=== PATIENT | male | born 1950 | race American Indian/Alaskan Native ===

== ENCOUNTER 2016-11-18 07:41 | Inpatient (IN) | payer BC ==
[2016-11-18] MEDS ORDERED: WATER FOR INJ (PF) 10 ML ONE (08:43)
[2016-11-18] MEDS ORDERED: GEODON IM ONE ×2 (08:43→08:45)
[2016-11-18] MEDS ORDERED: PROTONIX IV ONE (08:44)
--- NOTE | 2016-11-18 08:46 | Emergency Department Report ---
ED General Adult HPI - General Chief complaint: Weakness Stated complaint: LETHARGIC Time Seen by Provider: 11/18/16 08:08 Source: patient, family, EMS (ems notes not available at time of chart dictation), RN notes reviewed, old records reviewed Mode of arrival: Stretcher Limitations: Physical Limitation - History of Present Illness Initial comments: This is a 66-year-old male, previously unknown to me. History is obtained by the patient, speaking to his , and review of old medical records. Patient has a history of pulmonary embolus, no longer on anticoagulation, anemia , chronic kidney disease, CHF, possible stroke. He is brought to the hospital by his and ambulance for weakness. Weakness has been present for one week. He describes heartburn. He denies chest pain. He denies headache and neck pain. Denies nausea and vomiting. Denies hematemesis denies bright red blood per rectum, denies irritative and obstructive urinary symptoms. Symptoms are constant. Cannot describe exacerbating or relieving factors. -: Gradual Consistency: constant Improves with: none Worsens with: none Associated Symptoms: confusion, malaise, weakness - Related Data Home Medications Medication Instructions Recorded Confirmed Last Taken Aspirin EC [Aspirin Enteric Coated 81 mg PO QDAY 11/18/16 11/18/16 Unknown TAB] Furosemide [Lasix TAB] 40 mg PO QDAY 11/18/16 11/18/16 Unknown Lisinopril [Zestril TAB] 40 mg PO QDAY 11/18/16 11/18/16 Unknown Metolazone [Zaroxolyn] 5 mg PO QDAY 11/18/16 11/18/16 Unknown Pravastatin Sodium [Pravastatin] 40 mg PO QHS 11/18/16 11/18/16 Unknown cloNIDine [Catapres] 0.2 mg PO TID 11/18/16 11/18/16 Unknown Allergies Allergy/AdvReac Type Severity Reaction Status Date / Time No Known Allergies Allergy Verified 05/25/15 10:29 ED Review of Systems ROS: Stated complaint: LETHARGIC Other details as noted in HPI Constitutional: malaise, weakness Eyes: denies: vision change ENT: denies: epistaxis Respiratory: see HPI Cardiovascular: as per HPI Gastrointestinal: abdominal pain Genitourinary: as per HPI Musculoskeletal: as per HPI Neurological: weakness Psychiatric: as per HPI ED Past Medical Hx - Past Medical History Previous Medical History?: Yes Hx Hypertension: Yes Hx Heart Attack/AMI: (RV overload with PFO and dilated RA & RV, bradycardic) Hx Congestive Heart Failure: Yes Hx Diabetes: Yes Hx Liver Disease: No Hx Renal Disease: Yes (Stage 4 with need for dialysis recently) Hx Asthma: No Hx COPD: No Hx HIV: No Additional medical history: renal insufficiency - Surgical History Past Surgical History?: Yes - Social History Smoking Status: Never Smoker Substance Use Type: None - Medications Home Medications: Home Medications Medication Instructions Recorded Confirmed Last Taken Type Aspirin EC [Aspirin Enteric Coated 81 mg PO QDAY 11/18/16 11/18/16 Unknown History TAB] Furosemide [Lasix TAB] 40 mg PO QDAY 11/18/16 11/18/16 Unknown History Lisinopril [Zestril TAB] 40 mg PO QDAY 11/18/16 11/18/16 Unknown History Metolazone [Zaroxolyn] 5 mg PO QDAY 11/18/16 11/18/16 Unknown History Pravastatin Sodium [Pravastatin] 40 mg PO QHS 11/18/16 11/18/16 Unknown History cloNIDine [Catapres] 0.2 mg PO TID 11/18/16 11/18/16 Unknown History ED Physical Exam - General Limitations: Altered Mental Status, Physical Limitation General appearance: in no apparent distress, lethargic - Head Head exam: Present: atraumatic, normocephalic - Eye Eye exam: Present: normal appearance, EOMI. Absent: nystagmus - ENT ENT exam: Present: normal exam, normal orophraynx, mucous membranes moist - Neck Neck exam: Present: normal inspection, full ROM. Absent: tenderness, meningismus - Respiratory Respiratory exam: Present: normal lung sounds bilaterally. Absent: respiratory distress, wheezes, rales, rhonchi, stridor, chest wall tenderness - Cardiovascular Cardiovascular Exam: Present: regular rate, normal rhythm, normal heart sounds. Absent: bradycardia, tachycardia, irregular rhythm, systolic murmur, diastolic murmur, rubs, gallop - GI/Abdominal GI/Abdominal exam: Present: soft, normal bowel sounds. Absent: distended, tenderness, guarding, rebound, rigid, pulsatile mass - Rectal Rectal exam: Present: normal inspection, normal rectal tone, heme (+) stool, black stool - Extremities Exam Extremities exam: Present: normal inspection, full ROM, normal capillary refill. Absent: tenderness, pedal edema, joint swelling, calf tenderness - Back Exam Back exam: Present: normal inspection, full ROM. Absent: tenderness, CVA tenderness (R), CVA tenderness (L), muscle spasm, paraspinal tenderness, vertebral tenderness - Neurological Exam Neurological exam: Present: altered (alert to name, year, location.), other ( Extraocular movements intact. Tongue midline. No facial droop. Facial sensation intact to light touch in the V1, V2, V3 distribution bilaterally. 5 and 5 strength in 4 extremities.. Sensation is intact to light touch in 4 extremities.). Absent: motor sensory deficit - Psychiatric Psychiatric exam: Present: normal affect, normal mood - Skin Skin exam: Present: warm, dry, intact, normal color. Absent: rash ED Course Vital Signs 11/18/16 11/18/16 11/18/16 07:54 07:55 07:56 Temperature Pulse Rate Pulse Rate [ Anterior Bilateral Throughout] Respiratory Rate Respiratory Rate [Anterior Bilateral Throughout] Blood Pressure O2 Sat by Pulse 100 99 100 Oximetry 11/18/16 11/18/16 11/18/16 07:58 08:00 08:01 Temperature Pulse Rate 97 H Pulse Rate [ Anterior Bilateral Throughout] Respiratory 13 Rate Respiratory Rate [Anterior Bilateral Throughout] Blood Pressure 148/78 O2 Sat by Pulse 100 100 100 Oximetry 11/18/16 11/18/16 11/18/16 08:02 08:04 08:06 Temperature Pulse Rate 97 H 99 H 93 H Pulse Rate [ Anterior Bilateral Throughout] Respiratory 11 L 12 13 Rate Respiratory Rate [Anterior Bilateral Throughout] Blood Pressure 148/78 148/78 148/78 O2 Sat by Pulse 100 100 100 Oximetry 11/18/16 11/18/16 11/18/16 08:30 08:54 09:00 Temperature Pulse Rate 102 H 95 H 93 H Pulse Rate [ Anterior Bilateral Throughout] Respiratory 14 17 21 Rate Respiratory Rate [Anterior Bilateral Throughout] Blood Pressure 147/69 147/69 O2 Sat by Pulse 100 100 100 Oximetry 11/18/16 11/18/16 11/18/16 09:51 10:00 10:25 Temperature 98.1 F Pulse Rate 95 H 91 H Pulse Rate [ Anterior Bilateral Throughout] Respiratory 22 12 Rate Respiratory Rate [Anterior Bilateral Throughout] Blood Pressure 147/69 130/65 118/65 O2 Sat by Pulse 100 100 100 Oximetry 11/18/16 11/18/16 11/18/16 10:30 10:40 11:00 Temperature 98 F Pulse Rate 91 H 91 H 111 H Pulse Rate [ Anterior Bilateral Throughout] Respiratory 15 17 13 Rate Respiratory Rate [Anterior Bilateral Throughout] Blood Pressure 119/63 119/63 116/71 O2 Sat by Pulse 100 100 100 Oximetry 11/18/16 11/18/16 11/18/16 11:01 11:10 11:16 Temperature 98.2 F Pulse Rate 108 H 113 H Pulse Rate [ 112 H Anterior Bilateral Throughout] Respiratory 13 15 Rate Respiratory 19 Rate [Anterior Bilateral Throughout] Blood Pressure 111/75 111/75 O2 Sat by Pulse 100 100 Oximetry - Reevaluation(s) Reevaluation #1: 11/18/16 10:05 Differential diagnosis: Pneumonia, urinary tract infection, subacute stroke, anemia, renal insufficiency , electrolyte imbalance, acute coronary syndrome, gastrointestinal bleed Assessment and plan: 66-year-old male with generalized weakness, altered mental status. He moves 4 extremities, has a nonfocal neurologic exam, but is somewhat lethargic. Hemodynamically stable, afebrile rectally, black stool on rectal examination, strongly guaiac positive. not TPA candidate given upper GI bleed clinically, and symptoms present for greater than 4.5 hours. Urinalysis pending. Patient does not appear to be volume overloaded clinically. Laboratory studies indicate profound anemia, with hemoglobin/hematocrit of 3. 9/ 12. He was started empirically on Protonix, 2 large-bore IVs ordered, and emergent call was made to the blood bank for 3 units of packed red blood cells. Page is placed to gastroenterology, I am when he fell them to call back. I'm currently waiting for his chemistry studies to result. I have requested to the chemistry lab to expedite the results of his chemistry numerous times. Case is discussed with critical care, Dr. Billy, who authorizes triaged to the ICU. Case is discussed with Hospital physician, Tay Caldwell who graciously accepts the patient to his service. Reevaluation #2: 11/18/16 10:07 Lactic acidosis appreciated, most likely combination of hypoperfusion secondary to severe anemia, as well as superimposed/known chronic renal insufficiency. Reevaluation #3: 11/18/16 10:12 Elevated troponin appreciated, most likely combination of known renal insufficiency, and severe profound symptomatic anemia. I will withhold aspirin therapy at this time. I will defer to the inpatient team to contact cardiology. He is also hyperkalemic, with some worsening renal insufficiency. He also has hyperglycemia. I will administer rectal Kayexalate, and give him insulin. Reevaluation #4: 11/18/16 10:22 CASE is discussed with Dr. Sandoval of gastroenterology. ED Medical Decision Making - Lab Data Result diagrams: 11/18/16 08:48 11/18/16 08:48 Vital Signs 11/18/16 11/18/16 11/18/16 07:54 07:55 07:56 Pulse Rate Respiratory Rate Blood Pressure O2 Sat by Pulse 100 99 100 Oximetry 11/18/16 11/18/16 11/18/16 07:58 08:00 08:01 Pulse Rate 97 H Respiratory 13 Rate Blood Pressure 148/78 O2 Sat by Pulse 100 100 100 Oximetry 11/18/16 11/18/16 11/18/16 08:02 08:04 08:06 Pulse Rate 97 H 99 H 93 H Respiratory 11 L 12 13 Rate Blood Pressure 148/78 148/78 148/78 O2 Sat by Pulse 100 100 100 Oximetry 11/18/16 11/18/16 08:30 09:00 Pulse Rate 102 H 93 H Respiratory 14 21 Rate Blood Pressure 147/69 147/69 O2 Sat by Pulse 100 100 Oximetry Laboratory Last Values WBC 13.7 K/mm3 (4.5-11.0) H 11/18/16 08:48 RBC 1.38 M/mm3 (3.65-5.03) L 11/18/16 08:48 Hgb 3.9 gm/dl (11.8-15.2) L* 11/18/16 08:48 Hct 12.2 % (35.5-45.6) L* 11/18/16 08:48 MCV 88 fl (84-94) 11/18/16 08:48 MCH 28 pg (28-32) 11/18/16 08:48 MCHC 32 % (32-34) 11/18/16 08:48 RDW 16.7 % (13.2-15.2) H 11/18/16 08:48 Plt Count 270 K/mm3 (140-440) 11/18/16 08:48 PT 16.5 Sec. (12.2-14.9) H 11/18/16 08:48 INR 1.34 (0.87-1.13) H 11/18/16 08:48 Sodium 132 mmol/L (137-145) L 11/18/16 08:48 Potassium 5.4 mmol/L (3.6-5.0) H 11/18/16 08:48 Chloride 94.3 mmol/L (98-107) L 11/18/16 08:48 Carbon Dioxide 13 mmol/L (22-30) L 11/18/16 08:48 Anion Gap 30 mmol/L 11/18/16 08:48 Creatinine 3.9 mg/dL (0.8-1.5) H 11/18/16 08:48 Estimated GFR 19 ml/min 11/18/16 08:48 Glucose 515 mg/dL (75-100) H* 11/18/16 08:48 Lactic Acid 8.5 mmol/L (0.7-2.0) H* 11/18/16 08:48 Calcium 9.0 mg/dL (8.4-10.2) 11/18/16 08:48 Magnesium 2.2 mg/dL (1.7-2.3) 11/18/16 08:48 Total Bilirubin < 0.2 mg/dL (0.1-1.2) 11/18/16 08:48 AST 23 units/L (5-40) 11/18/16 08:48 ALT 16 units/L (7-56) 11/18/16 08:48 Alkaline Phosphatase 55 units/L (35-129) 11/18/16 08:48 Ammonia 49.0 umol/L (25-60) 11/18/16 08:48 Total Creatine Kinase 357 units/L (55-170) H 11/18/16 08:48 Troponin T 1.210 ng/mL (0.00-0.029) H* 11/18/16 08:48 NT-Pro-B Natriuret Pep 35522 pg/mL (0-900) H 11/18/16 08:48 Total Protein 6.2 g/dL (6.3-8.2) L 11/18/16 08:48 Albumin 3.3 g/dL (3.9-5) L 11/18/16 08:48 Albumin/Globulin Ratio 1.1 % 11/18/16 08:48 Blood Type A POSITIVE 11/18/16 08:48 Antibody Screen Negative 11/18/16 08:48 Crossmatch See Detail 11/18/16 08:48 - EKG Data 11/18/16 10:08 Normal sinus, 99 bpm, normal axis, Q waves noted in the inferior leads, nonspecific ST abnormality in lead 1, aVL, 3 and aVF. Not morphologically consistent with STEMI, motion artifact, patient has no chest pain. - Radiology Data Radiology results: report reviewed, image reviewed Chronic pulmonary vascular congestion, cardiomegaly ct head with his chronic findings, no acute disease. Chronic changes noted. Critical Care Time: Yes Critical care time in (mins) excluding proc time.: 45 Critical care attestation.: If time is entered above; I have spent that time in minutes in the direct care of this critically ill patient, excluding procedure time. Critical Care Time: Critical care time includes multiple bedside evaluations, interpretation of laboratory studies, radiology studies and time spent caring for a critical patient with severe lactic acidosis and severe anemia requiring consultation with critical care, gastroenterology, hospital medicine, and packed red blood cell transfusion. This excludes procedure time. ED Disposition Clinical Impression: Symptomatic anemia, CKD (chronic kidney disease) stage 4, GFR 15-29 ml/min, Hyperkalemia, Physical deconditioning Disposition: OP ADMITTED IP TO THIS HOSP Is pt being admited?: Yes Does the pt Need Aspirin: No Condition: Critical
--- NOTE | 2016-11-18 08:47 | XRay Report ---
AP CHEST: HISTORY: Weakness There is moderate cardiomegaly and mild central pulmonary venous congestion. The lungs are clear. No evidence for pneumonia, CHF or pneumothorax. IMPRESSION: Cardiomegaly and pulmonary venous congestion.
[2016-11-18 09:38] LABS: Mean Corpuscular HGB Conc 32 % (32-34); Mean Corpuscular Hemoglobin 28 pg (28-32); Mean Corpuscular Volume 88 fl (84-94); Platelet Count 270 K/mm3 (140-440); Red Blood Count 1.38 M/mm3 (3.65-5.03); Red Cell Distribution Width 16.7 % (13.2-15.2); White Blood Count 13.7 K/mm3 (4.5-11.0)
[2016-11-18 09:47] LABS: Hemoglobin 3.9 gm/dl (11.8-15.2); INR 1.34 (0.87-1.13)
[2016-11-18 09:48] LABS: Hematocrit 12.2 % (35.5-45.6)
[2016-11-18] MEDS ORDERED: NACL 0.9% 500 ML 500 ML IV ONE (09:51)
[2016-11-18 10:03] LABS: Alanine Aminotransferase 16 units/L (7-56); Albumin 3.3 g/dL (3.9-5); Albumin/Globulin Ratio 1.1 %; Alkaline Phosphatase 55 units/L (35-129); Anion Gap 30 mmol/L; Bilirubin,Total < 0.2 mg/dL (0.1-1.2); Carbon Dioxide 13 mmol/L (22-30); Chloride 94.3 mmol/L (98-107); Creatine Kinase 357 units/L (55-170); Magnesium 2.2 mg/dL (1.7-2.3); Potassium 5.4 mmol/L (3.6-5.0); Sodium 132 mmol/L (137-145); Total Protein 6.2 g/dL (6.3-8.2)
--- NOTE | 2016-11-18 10:04 | Cat Scan Report ---
CT HEAD WITHOUT CONTRAST: HISTORY: Altered mental status. TECHNIQUE: Sequential CT images without contrast. FINDINGS: Images obtained show bilateral prominence of the sulci and ventricles. There are no abnormal intra- or extra-axial blood or fluid collections. There are no focal masses or evidence of mass effect. The mclaughlin white matter differentiation appears within normal limits. 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 Chronic 3 cm infarct in the right posterior watershed region is noted. The posterior fossa structures including the fourth ventricle, cerebellum, and brainstem appear normal. IMPRESSION: Chronic white matter changes. Chronic infarct in the right parieto-occipital region. No acute intracranial process is appreciated.
[2016-11-18 10:05] LABS: Glucose 515 mg/dL (75-100)
[2016-11-18] MEDS ORDERED: KIONEX PR ONE (10:13)
[2016-11-18] MEDS ORDERED: PROVENTIL IH ONE (10:13)
[2016-11-18 10:23] LABS: Cholesterol 145 mg/dL (50-199); HDL Cholesterol 28 mg/dL (40-59); LDL Cholesterol,Direct 87 mg/dL (50-130); Triglycerides 154 mg/dL (2-149)
[2016-11-18] MEDS ORDERED: DULCOLAX PR PRN (10:24)
[2016-11-18] MEDS ORDERED: MORPHINE IV PRN (10:24)
[2016-11-18] MEDS ORDERED: MILK OF MAGNESIA PO PRN (10:24)
[2016-11-18] MEDS ORDERED: SODIUM BICARBONATE IV ONE ×2 (10:30→10:50)
[2016-11-18] MEDS ORDERED: D50W (25GM) IV PRN ×2 (10:31→11:00)
[2016-11-18 10:32] LABS: Basophils % (Manual) 0 % (0.0-1.8); Blastocytes % (Manual) 0 %; Eosinophils % (Manual) 0 % (0.0-4.3); Polychromasia Few
[2016-11-18 10:33] LABS: Anisocytosis 2+; Diff Status Complete
[2016-11-18 10:34] LABS: BUN/Creatinine Ratio 30.76; Blood Urea Nitrogen 120 mg/dL (9-20)
[2016-11-18] MEDS ORDERED: PROVENTIL IH PRN (10:42)
[2016-11-18] MEDS: PROTONIX 80 MG in NACL 0.9% 100 ML IV SCH ×2 (10:58→21:09)
[2016-11-18] MEDS ORDERED: NACL 0.9% 1000 ML 1,000 ML IV SCH ×2 (11:00→16:00)
[2016-11-18] MEDS ORDERED: ALUM-MAG HYDROX-SIMETH 200-200-20MG/5ML PO PRN (11:00)
--- NOTE | 2016-11-18 11:08 | Admit Criteria Form ---
Admission Criteria Documentation: ANEMIA, IRON DEFICIENCY OR UNSPECIFIED Clinical Indications for Inpatient Care (Place 'X' for any and all applicable criteria): Admission is indicated for ANY ONE of the following(1)(2)(3)(4)(5)(6)(7): [X] I. Inpatient admission required rather than observation care (Also use Anemia, Iron Deficiency or Unspecified: Observation Care guideline as appropriate) because of ANY ONE of the following: [] a) Hemodynamic instability that is severe or persistent [] b) Active bleeding that cannot be rapidly controlled [] c) CVS symptoms (i.e., dyspnea, chest pain, heart failure) that are severe or persistent [X] d) Neurologic symptoms (i.e., cognitive impairment, recurrent syncope or near syncope) that are severe or persistent [] e) Cardiac arrhythmias of immediate concern [] f) Acute peripheral ischemia (e.g., pulseless, cool, mottled, or cyanotic extremity) [] g) High-risk low platelet count [X] h) Acute renal failure [X] i) Ongoing transfusion for blood loss (greater than 2 units) [] j) IV fluid to replace significant ongoing (eg, >24 hours) losses (> 3 L/m2 per day) [] k) Pulmonary artery catheter monitoring [] l) Supplemental oxygen or respiratory treatments for over 24 hours that are performable only in acute inpatient setting [] m) Immediate inpatient surgery [] n) Other condition, treatment or monitoring requiring inpatient admission [] II Active massive hemorrhage [] III. Active hemolysis with rapidly progressive anemia [A](6) Extended stay beyond goal length of stay may be needed for (17)(18) []a) Diagnosed cause of anemia requiring longer hospitalization (eg, active GI bleeding, immune hemolysis requiring electrophoresis, complications of malignancy requiring acute care []b) Continued emergent anemia indicators (23) []c) Transfusion reactions []d) Associated leukopenia or thrombocytopenia needing inpatient care []e) Active comorbidities (eg, renal failure, heart failure) The original [facility] Care Guidelines content created by [facility] Care Guidelines has been revised. The portions of the content which have been revised are identified through the use of italic text or in bold. [facility] Guidelines has neither reviewed nor approved the modified material. All other unmodified content is copyright [facility] Care Guidelines. Please see references footnoted in the original [facility] CareGuidelines edition 2016 Admission Criteria Met: Yes
[2016-11-18 11:52] LABS: Bacteria,Urine 1+ /HPF (Negative); Bilirubin,Urine NEG (Negative); Blood,Urine SM (Negative); Ketones,Urine NEG (Negative); Leukocyte Esterase,Urine NEG (Negative); Mucus,Urine FEW /HPF; Nitrite,Urine NEG (Negative); Urobilinogen,Urine < 2.0 mg/dL (<2.0)
[2016-11-18] MEDS ORDERED: NOVOLOG SUB-Q SCH (12:00)
--- NOTE | 2016-11-18 13:18 | Gastroenterology Consultation ---
History of Present Illness - Reason for Consult Consult date: 11/18/16 Severe anemia Requesting physician: BG BLANC - History of Present Illness Mr Quinones is a 66 y/o male admitted with progressive weakness and AMS x 1 week. History is obtained per chart review as the patient is very lethargic and no family in room. Per ED note, stool noted to be black per rectal exam. BUN > 100. Mr Quinones was found to have an H/H of 3.9/12.2. on admission. He was last seen in consult 05/2016 and underwent EGD revealing erosive gastritis and a 3mm white based ulcer. NO path obtained as the patient was on Coumadin at the time. 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 Colonoscopy was not obtained at that time 2/2 comorbids and the patient was hospitalized with dilated RV/ PFO. He is not longer on anticoagulation. PMH significant for PE, A/C anemia, CKD, CHF, CVA. He is on a daily ASA. Past History Past Medical History: CAD, heart failure, hypertension, other (PE, CVA, ) Past Surgical History: No surgical history Social history: Family history: no significant family history Medications and Allergies Allergies Allergy/AdvReac Type Severity Reaction Status Date / Time No Known Allergies Allergy Verified 05/25/15 10:29 Home Medications Medication Instructions Recorded Confirmed Last Taken Type Aspirin EC [Aspirin Enteric Coated 81 mg PO QDAY 11/18/16 11/18/16 Unknown History TAB] Furosemide [Lasix TAB] 40 mg PO QDAY 11/18/16 11/18/16 Unknown History Lisinopril [Zestril TAB] 40 mg PO QDAY 11/18/16 11/18/16 Unknown History Metolazone [Zaroxolyn] 5 mg PO QDAY 11/18/16 11/18/16 Unknown History Pravastatin Sodium [Pravastatin] 40 mg PO QHS 11/18/16 11/18/16 Unknown History cloNIDine [Catapres] 0.2 mg PO TID 11/18/16 11/18/16 Unknown History Active Meds: Active Medications Al Hydrox/Mg Hydrox/Simethicone (Alum-Mag Hydrox-Simeth [phone]/5ml) 30 ml PO Q4H PRN PRN Reason: Indigestion Albuterol (Proventil) 2.5 mg IH Q3HRT PRN PRN Reason: Shortness Of Breath Albuterol/Ipratropium (Duoneb 0.5 Mg-3 Mg/3 Ml Soln) 1 ampul IH Q6HRT ELISSA Bisacodyl (Dulcolax) 10 mg NH QDAY PRN PRN Reason: constipation unrelieved by MOM Dextrose (D50w (25gm)) 50 ml IV PRN PRN PRN Reason: Hypoglycemia Pantoprazole Sodium 80 mg/ (Sodium Chloride) 100 mls @ 10 mls/hr IV Q10H ELISSA PRN Reason: 8 MG/HR Last Admin: 11/18/16 10:58 Dose: 10 mls/hr Sodium Chloride (Nacl 0.9% 1000 Ml) 1,000 mls @ 125 mls/hr IV DIRECT ELISSA Insulin Aspart (Novolog) 6 units SUB-Q Q6HR ELISSA Insulin Aspart (Novolog) 0 units SUB-Q Q6HR ELISSA PRN Reason: Protocol Magnesium Hydroxide (Milk Of Magnesia) 30 ml PO Q4H PRN PRN Reason: Constipation Morphine Sulfate (Morphine) 2 mg IV Q4H PRN PRN Reason: Pain, Moderate (4-6) Review of Systems - Review of Systems ROS unobtainable: due to mental status Exam - Constitutional Vital Signs: Temp Pulse Resp BP Pulse Ox 97.5 F L 108 H 13 148/75 100 11/18/16 12:40 11/18/16 12:40 11/18/16 12:40 11/18/16 12:40 11/18/16 12:40 General appearance: no acute distress, other (lethargic, unable to answer questions.) - EENT ENT: hearing intact - Neck Neck: supple - Respiratory Respiratory: bilateral: CTA - Cardiovascular Rhythm: other (tachycardia) Heart Sounds: Present: S1 & S2 Extremities: pulses intact - Gastrointestinal General gastrointestinal: Present: soft, non-tender, normal bowel sounds - Integumentary Integumentary: Present: warm, dry - Neurologic Neurological: other (lethargic) - Labs CBC & Chem 7: 11/18/16 08:48 11/18/16 08:48 Lab Results: Laboratory Results - last 24 hr 11/18/16 11:18 Urine Color Yellow Urine Turbidity Slightly-cloudy Urine pH 5.0 Ur Specific [place] 1.011 Urine Protein 30 mg/dl Urine Glucose (UA) >=500 Urine Ketones Neg Urine Blood Sm Urine Nitrite Neg Urine Bilirubin Neg Urine Urobilinogen < 2.0 Ur Leukocyte Esterase Neg Urine WBC (Auto) 4.0 Urine RBC (Auto) 3.0 U Epithel Cells (Auto) < 1.0 Urine Bacteria (Auto) 1+ Amorphous Crystals 2+ Urine Mucus Few Assessment and Plan 1.Severe Anemia 2. Melena -Etiology could be AVM vs PUD. -Agree with PPI gtt -No blood thinning meds -Patient is to receive 3 untis of PRBC, currently receiving first unit. Check H /H post transfusion and continue to monitor H/H. NO BM/bleeding since admission to ICU. Plan for EGD tomorrow once H/H stable unless patient begins to overtly bleed. -Keep NPO.
[2016-11-18] MEDS: NOVOLOG SUB-Q SCH ×2 (13:31→18:27)
--- NOTE | 2016-11-18 14:05 | Consultation ---
History of Present Illness Consult date: 11/18/16 Requesting physician: BG CROSS Consult reason: elevated troponin History of present illness: The history was obtained from the medical record as the patient is very lethargic and there is no family present. The patient is a 66 year old male with a history of chronic systolic heart failure (EF 30-35%), non-ischemic cardiomyopathy, chronic kidney disease, CVA, PE who presented for evaluation of weakness. According to ER documentation, the patient has been weak for the past one week. He denies any chest pain, shortness of breath, nausea, vomiting or diaphoresis. Hemoglobin 3.9 with a hematocrit of 12.2. INR 1.34. Troponin 1.2. BNP 91243. BUN 120 with a creatinine of 3.9. Glucose 515. Lactic acid 8.5. Stool positive for occult blood. Echo done 04/2016 showed EF 30-35%, mild MR, moderate-severe TR, RVSP 47 mmHg. Stress test done 04/2016 was negative for ischemia. Past History Past Medical History: anemia, diabetes, heart failure, hypertension, hyperlipidemia, pulmonary embolism, stroke, other (chronic kidney disease) Past Surgical History: No surgical history Social history: , lives with family. denies: smoking, alcohol abuse, prescription drug abuse, IV drug use Family history: no significant family history Medications and Allergies Allergies Allergy/AdvReac Type Severity Reaction Status Date / Time No Known Allergies Allergy Verified 05/25/15 10:29 Home Medications Medication Instructions Recorded Confirmed Last Taken Type Aspirin EC [Aspirin Enteric Coated 81 mg PO QDAY 11/18/16 11/18/16 Unknown History TAB] Furosemide [Lasix TAB] 40 mg PO QDAY 11/18/16 11/18/16 Unknown History Lisinopril [Zestril TAB] 40 mg PO QDAY 11/18/16 11/18/16 Unknown History Metolazone [Zaroxolyn] 5 mg PO QDAY 11/18/16 11/18/16 Unknown History Pravastatin Sodium [Pravastatin] 40 mg PO QHS 11/18/16 11/18/16 Unknown History cloNIDine [Catapres] 0.2 mg PO TID 11/18/16 11/18/16 Unknown History Active Meds: Active Medications Al Hydrox/Mg Hydrox/Simethicone (Alum-Mag Hydrox-Simeth [id number]/5ml) 30 ml PO Q4H PRN PRN Reason: Indigestion Albuterol (Proventil) 2.5 mg IH Q3HRT PRN PRN Reason: Shortness Of Breath Albuterol/Ipratropium (Duoneb 0.5 Mg-3 Mg/3 Ml Soln) 1 ampul IH Q6HRT ELISSA Bisacodyl (Dulcolax) 10 mg OR QDAY PRN PRN Reason: constipation unrelieved by MOM Dextrose (D50w (25gm)) 50 ml IV PRN PRN PRN Reason: Hypoglycemia Pantoprazole Sodium 80 mg/ (Sodium Chloride) 100 mls @ 10 mls/hr IV Q10H ELISSA PRN Reason: 8 MG/HR Last Admin: 11/18/16 10:58 Dose: 10 mls/hr Sodium Chloride (Nacl 0.9% 1000 Ml) 1,000 mls @ 125 mls/hr IV DIRECT ELISSA Insulin Aspart (Novolog) 6 units SUB-Q Q6HR [facility] Last Admin: 11/18/16 13:34 Dose: Not Given Insulin Aspart (Novolog) 0 units SUB-Q Q6HR ELISSA PRN Reason: Protocol Last Admin: 11/18/16 13:31 Dose: 8 units Magnesium Hydroxide (Milk Of Magnesia) 30 ml PO Q4H PRN PRN Reason: Constipation Morphine Sulfate (Morphine) 2 mg IV Q4H PRN PRN Reason: Pain, Moderate (4-6) Review of Systems Constitutional: fatigue, weakness, lethargy, no fever, no chills Ears, nose, mouth and throat: no nasal congestion, no nasal discharge, no sinus pressure Cardiovascular: no chest pain, no palpitations, no shortness of breath Respiratory: no cough, no shortness of breath, no dyspnea on exertion, no congestion, no wheezing Gastrointestinal: no abdominal pain, no nausea, no vomiting, no diarrhea Genitourinary Male: no dysuria, no hematuria Musculoskeletal: no neck stiffness, no neck pain, no myalgias Integumentary: no rash, no pruritis Neurological: no parathesias, no numbness, no tingling Endocrine: no cold intolerance, no heat intolerance Hematologic/Lymphatic: no easy bruising, no easy bleeding Allergic/Immunologic: no urticaria, no wheezing Physical Examination Last Vital Signs Temp 97 F L 11/18/16 14:05 Pulse 16 L 11/18/16 14:05 Resp 108 H 11/18/16 14:05 BP 138/81 11/18/16 14:05 Pulse Ox 100 11/18/16 14:05 General appearance: no acute distress (lethargic) HEENT: Positive: Normocephaly, Mucus Membranes Moist Neck: Positive: neck supple, trachea midline Cardiac: Positive: Reg Rate and Rhythm, S1/S2, Systolic Murmur Lungs: Positive: Decreased Breath Sounds Neuro: Positive: Other (pt. very lethargic) Abdomen: Positive: Soft, Active Bowel Sounds. Negative: Tender Extremities: Absent: edema Results 11/18/16 08:48 11/18/16 08:48 - Imaging and Cardiology Echo: report reviewed (04/2016: EF 30-35%, mild MR, moderate-severe TR, RVSP 47 mmHg) EKG: image reviewed EKG interpretations - Telemetry EKG Rhythm: Sinus Rhythm - EKG Sinus rhythms and dysrhythmias: sinus rhythm Repolarization changes or abnormalities: nonspecific abnormality, ST segment, and/or T wave Assessment and Plan GI bleed/severe anemia transfuse as needed hx. of gastric ulcer (05/2016) management per GI Elevated troponin-->likely due to CKD/cardiomyopathy/demand ischemia will trend no chest pain or EKG changes stress MPI 04/2016: small, mild, fixed inferior wall defect, no ischemia Chronic systolic heart failure Echo 04/2016: EF 30-35%, mild MR, moderate-severe TR, RVSP 47 mmHg no beta carole due to hx. of marked bradycardia on BB no ACEI/ARB due to renal insufficiency Non-ischemic cardiomyopathy EF 30-35% Hx. of pulmonary embolus (05/2016) pt. previously on coumadin, unclear why/when this was stopped CVA (05/2016) Brain MRI 05/31/16: multiple focal areas of ischemia on the R side of the brain, acute stroke in the R posterior lateral/parietal area, multiple small ischemic strokes in the brainstem and cerebellum consistent with an embolic event NERI 06/02/16: PFO, severe RA enlargement, RV moderately dilated/dysfunctional coumadin and statin therapy recommended by neurology Chronic kidney disease per nephrology Hypertension BP stable off anti-hypertensives currently will monitor hx. of marked sinus gaby while on BB/clonidine Diabetes Anemia Elevated troponin likely due to CKD/cardiomyopathy/demand ischemia. Patient is chest pain free. Will obtain additional sets of cardiac enzymes. The patient has been seen in conjunction with Dr. Robledo who agrees with the assessment and plan of care. Thank you Dr. Cross who agrees with the assessment and plan of care.
[2016-11-18] MEDS: DUONEB 0.5 MG-3 MG/3 ML SOLN IH SCH ×2 (14:11→19:36)
--- NOTE | 2016-11-18 14:38 | Consultation ---
History of Present Illness - Reason for Consult Consult date: 11/18/16 GI Bleed, ICU care - History of Present Illness 66 y/o male brought in with altered mental status. Found to have HgB of 3.9, normotensive with guiac positive stools. Being admitted to the ICU for further monitoring. Past History Past Medical History: anemia, diabetes, heart failure, hypertension, hyperlipidemia, pulmonary embolism, stroke, other (chronic kidney disease) Past Surgical History: No surgical history Social history: , lives with family. denies: smoking, alcohol abuse, prescription drug abuse, IV drug use Family history: no significant family history Medications and Allergies Allergies Allergy/AdvReac Type Severity Reaction Status Date / Time No Known Allergies Allergy Verified 05/25/15 10:29 Home Medications Medication Instructions Recorded Confirmed Last Taken Type Aspirin EC [Aspirin Enteric Coated 81 mg PO QDAY 11/18/16 11/18/16 Unknown History TAB] Furosemide [Lasix TAB] 40 mg PO QDAY 11/18/16 11/18/16 Unknown History Lisinopril [Zestril TAB] 40 mg PO QDAY 11/18/16 11/18/16 Unknown History Metolazone [Zaroxolyn] 5 mg PO QDAY 11/18/16 11/18/16 Unknown History Pravastatin Sodium [Pravastatin] 40 mg PO QHS 11/18/16 11/18/16 Unknown History cloNIDine [Catapres] 0.2 mg PO TID 11/18/16 11/18/16 Unknown History Active Meds: Active Medications Al Hydrox/Mg Hydrox/Simethicone (Alum-Mag Hydrox-Simeth [id number]/5ml) 30 ml PO Q4H PRN PRN Reason: Indigestion Albuterol (Proventil) 2.5 mg IH Q3HRT PRN PRN Reason: Shortness Of Breath Albuterol/Ipratropium (Duoneb 0.5 Mg-3 Mg/3 Ml Soln) 1 ampul IH Q6HRT ELISSA Last Admin: 11/18/16 14:11 Dose: Not Given Bisacodyl (Dulcolax) 10 mg [place] QDAY PRN PRN Reason: constipation unrelieved by MOM Dextrose (D50w (25gm)) 50 ml IV PRN PRN PRN Reason: Hypoglycemia Pantoprazole Sodium 80 mg/ (Sodium Chloride) 100 mls @ 10 mls/hr IV Q10H ELISSA PRN Reason: 8 MG/HR Last Admin: 11/18/16 10:58 Dose: 10 mls/hr Sodium Chloride (Nacl 0.9% 1000 Ml) 1,000 mls @ 125 mls/hr IV DIRECT ELISSA Insulin Aspart (Novolog) 6 units SUB-Q Q6HR [facility] Last Admin: 11/18/16 13:34 Dose: Not Given Insulin Aspart (Novolog) 0 units SUB-Q Q6HR ELISSA PRN Reason: Protocol Last Admin: 11/18/16 13:31 Dose: 8 units Magnesium Hydroxide (Milk Of Magnesia) 30 ml PO Q4H PRN PRN Reason: Constipation Morphine Sulfate (Morphine) 2 mg IV Q4H PRN PRN Reason: Pain, Moderate (4-6) Exam - Constitutional Vitals: Temp Pulse Resp BP Pulse Ox 97 F L 16 L 108 H 138/81 100 11/18/16 14:05 11/18/16 14:05 11/18/16 14:05 11/18/16 14:05 11/18/16 14:05 Results - Labs CBC & Chem 7: 11/19/16 01:45 11/18/16 08:48 Assessment and Plan 66 y/o male with GI bleed and symptomatic anemia, most likely secondary to acute blood loss. 1. Multiple large bore IV's placed 2. q6hour H/H's 3. PPI drip 4. Serial lactic acids 5. Must be mindful of volume given renal function CCT 31 minutes.
[2016-11-18] MEDS ORDERED: NOVOLOG SUB-Q ONE (15:00)
--- NOTE | 2016-11-18 15:45 | History and Physical Report ---
History of Present Illness Date of examination: 11/18/16 Date of admission: 11/18/16 10:24 Chief complaint: Generalized weakness, melanotic stool History of present illness: Patient's assisted 6-year-old male with past medical history of chronic kidney disease, pulmonary embolism but not on anticoagulation, CHF, anemia, peptic ulcer disease who presented to the hospital with complaining of generalized weakness for about a week. Information was obtained from the as patient is severely weak and not provide much information. But as far as the patient in the past week has gradually been declining and yesterday was complaining of abdominal discomfort she initially thought that this was secondary to his reflux and encouraged him to make sure that his tooth is in place before eating. Most that when she came back his fluid was still on thoughts and he was basically very weak and almost least less prompted her to call the ambulance to bring her into the hospital. She also reports that she notes that he stool was dark the day before. But no james blood noted hemoptysis no hematemesis. No bright red blood per rectum. He is unable to provide to be any more information about his abdominal discomfort or if it is still present and was not perceived to be present on my physical exam. Past History Past Medical History: anemia, diabetes, heart failure, hypertension, hyperlipidemia, pulmonary embolism, stroke, other (CK D) Past Surgical History: No surgical history Social history: , lives with family. denies: smoking, alcohol abuse, prescription drug abuse, IV drug use Family history: no significant family history Medications and Allergies Allergies Allergy/AdvReac Type Severity Reaction Status Date / Time No Known Allergies Allergy Verified 05/25/15 10:29 Home Medications Medication Instructions Recorded Confirmed Last Taken Type Aspirin EC [Aspirin Enteric Coated 81 mg PO QDAY 11/18/16 11/18/16 Unknown History TAB] Furosemide [Lasix TAB] 40 mg PO QDAY 11/18/16 11/18/16 Unknown History Lisinopril [Zestril TAB] 40 mg PO QDAY 11/18/16 11/18/16 Unknown History Metolazone [Zaroxolyn] 5 mg PO QDAY 11/18/16 11/18/16 Unknown History Pravastatin Sodium [Pravastatin] 40 mg PO QHS 11/18/16 11/18/16 Unknown History cloNIDine [Catapres] 0.2 mg PO TID 11/18/16 11/18/16 Unknown History Active Meds: Active Medications Al Hydrox/Mg Hydrox/Simethicone (Alum-Mag Hydrox-Simeth 247-412-77hm/5ml) 30 ml PO Q4H PRN PRN Reason: Indigestion Albuterol (Proventil) 2.5 mg IH Q3HRT PRN PRN Reason: Shortness Of Breath Albuterol/Ipratropium (Duoneb 0.5 Mg-3 Mg/3 Ml Soln) 1 ampul IH Q6HRT [facility] Last Admin: 11/18/16 14:11 Dose: Not Given Bisacodyl (Dulcolax) 10 mg AK QDAY PRN PRN Reason: constipation unrelieved by MOM Dextrose (D50w (25gm)) 50 ml IV PRN PRN PRN Reason: Hypoglycemia Pantoprazole Sodium 80 mg/ (Sodium Chloride) 100 mls @ 10 mls/hr IV Q10H [facility] PRN Reason: 8 MG/HR Last Admin: 11/18/16 10:58 Dose: 10 mls/hr Sodium Chloride (Nacl 0.9% 1000 Ml) 1,000 mls @ 125 mls/hr IV DIRECT [facility] Insulin Aspart (Novolog) 0 units SUB-Q Q6HR ELISSA PRN Reason: Protocol Last Admin: 11/18/16 13:31 Dose: 8 units Insulin Aspart (Novolog) 10 units SUB-Q ONCE ONE Stop: 11/18/16 15:01 Magnesium Hydroxide (Milk Of Magnesia) 30 ml PO Q4H PRN PRN Reason: Constipation Morphine Sulfate (Morphine) 2 mg IV Q4H PRN PRN Reason: Pain, Moderate (4-6) Review of Systems ROS unobtainable: due to mental status All systems: negative Constitutional: fatigue, weakness, malaise, lethargy, poor appetite, no weight loss, no weight gain Ears, nose, mouth and throat: no epistaxis, no bleeding gums, no dental pain, no mouth pain Cardiovascular: no chest pain, no orthopnea, no palpitations, no rapid/ irregular heart beat, no edema, no syncope, no lightheadedness, no shortness of breath, no dyspnea on exertion Respiratory: no cough, no cough with sputum, no excessive sputum, no hemoptysis Gastrointestinal: abdominal pain, nausea, melena, no vomiting, no diarrhea, no constipation, no change in bowel habits, no coffee ground emesis, no BRBPR Genitourinary Male: no dysuria, no hematuria, no flank pain Rectal: no pain, no incontinence, no bleeding, no hemorrhoids, no discharge Musculoskeletal: no neck stiffness, no neck pain Neurological: weakness, no headaches, no migraines Psychiatric: no anxiety, no memory loss, no change in sleep habits Endocrine: no heat intolerance, no polyphagia, no excessive thirst, no polydipsia Hematologic/Lymphatic: no easy bruising, no easy bleeding Allergic/Immunologic: no urticaria Exam - Physical Exam Narrative exam: VITAL SIGNS: Reviewed. GENERAL: The patient appeared well nourished and normally developed but very lethargic. Vital signs as documented. HEAD: No signs of head trauma. EYES: Pupils are equal. Extraocular motions intact. EARS: Hearing grossly intact. MOUTH: Oropharynx is normal. NECK: No adenopathy, no JVD. CHEST: Chest with clear breath sounds bilaterally. No wheezes, rales, or rhonchi. CARDIAC: Regular rate and rhythm. S1 and S2, without murmurs, gallops, or rubs. VASCULAR: No Edema. Peripheral pulses normal and equal in all extremities. ABDOMEN: Soft, without detectable tenderness. No sign of distention. No rebound or guarding, and no masses palpated. Bowel Sounds normal. MUSCULOSKELETAL: Good range of motion of all major joints. Extremities without clubbing, cyanosis or edema. NEUROLOGIC EXAM: Lethargic but oriented x 3. No focal sensory or strength deficits. Speech normal. Follows commands. PSYCHIATRIC: Mood normal. SKIN: Marked severe dryness of skin - Constitutional Vitals: Temp Pulse Resp BP Pulse Ox 97 F L 16 L 108 H 138/81 100 11/18/16 14:05 11/18/16 14:05 11/18/16 14:05 11/18/16 14:05 11/18/16 14:05 Results - Labs CBC & Chem 7: 11/18/16 08:48 11/18/16 08:48 Labs: Laboratory Last Values WBC 13.7 K/mm3 (4.5-11.0) H 11/18/16 08:48 RBC 1.38 M/mm3 (3.65-5.03) L 11/18/16 08:48 Hgb 3.9 gm/dl (11.8-15.2) L* 11/18/16 08:48 Hct 12.2 % (35.5-45.6) L* 11/18/16 08:48 MCV 88 fl (84-94) 11/18/16 08:48 MCH 28 pg (28-32) 11/18/16 08:48 MCHC 32 % (32-34) 11/18/16 08:48 RDW 16.7 % (13.2-15.2) H 11/18/16 08:48 Plt Count 270 K/mm3 (140-440) 11/18/16 08:48 Add Manual Diff Complete 11/18/16 08:48 Total Counted 100 11/18/16 08:48 Seg Neuts % (Manual) 79.0 % (40.0-70.0) H 11/18/16 08:48 Band Neutrophils % 0 % 11/18/16 08:48 Lymphocytes % (Manual) 8.0 % (13.4-35.0) L 11/18/16 08:48 Reactive Lymphs % (Man) 0 % 11/18/16 08:48 Monocytes % (Manual) 11.0 % (0.0-7.3) H 11/18/16 08:48 Eosinophils % (Manual) 0 % (0.0-4.3) 11/18/16 08:48 Basophils % (Manual) 0 % (0.0-1.8) 11/18/16 08:48 Metamyelocytes % 2.0 % 11/18/16 08:48 Myelocytes % 0 % 11/18/16 08:48 Promyelocytes % 0 % 11/18/16 08:48 Blast Cells % 0 % 11/18/16 08:48 Nucleated RBC % Not Reportable 11/18/16 08:48 Seg Neutrophils # Man 10.8 K/mm3 (1.8-7.7) H 11/18/16 08:48 Band Neutrophils # 0.0 K/mm3 11/18/16 08:48 Lymphocytes # (Manual) 1.1 K/mm3 (1.2-5.4) L 11/18/16 08:48 Abs React Lymphs (Man) 0.0 K/mm3 11/18/16 08:48 Monocytes # (Manual) 1.5 K/mm3 (0.0-0.8) H 11/18/16 08:48 Eosinophils # (Manual) 0.0 K/mm3 (0.0-0.4) 11/18/16 08:48 Basophils # (Manual) 0.0 K/mm3 (0.0-0.1) 11/18/16 08:48 Metamyelocytes # 0.3 K/mm3 11/18/16 08:48 Myelocytes # 0.0 K/mm3 11/18/16 08:48 Promyelocytes # 0.0 K/mm3 11/18/16 08:48 Blast Cells # 0.0 K/mm3 11/18/16 08:48 WBC Morphology Not Reportable 11/18/16 08:48 Hypersegmented Neuts Not Reportable 11/18/16 08:48 Hyposegmented Neuts Not Reportable 11/18/16 08:48 Hypogranular Neuts Not Reportable 11/18/16 08:48 Smudge Cells Not Reportable 11/18/16 08:48 Toxic Granulation Not Reportable 11/18/16 08:48 Toxic Vacuolation Not Reportable 11/18/16 08:48 Dohle Bodies Not Reportable 11/18/16 08:48 Pelger-Huet Anomaly Not Reportable 11/18/16 08:48 Scotty Rods Not Reportable 11/18/16 08:48 Platelet Estimate Appears normal 11/18/16 08:48 Clumped Platelets Not Reportable 11/18/16 08:48 Plt Clumps, EDTA Not Reportable 11/18/16 08:48 Large Platelets Not Reportable 11/18/16 08:48 Giant Platelets Not Reportable 11/18/16 08:48 Platelet Satelliting Not Reportable 11/18/16 08:48 Plt Morphology Comment Not Reportable 11/18/16 08:48 RBC Morphology Not Reportable 11/18/16 08:48 Dimorphic RBCs Not Reportable 11/18/16 08:48 Polychromasia Few 11/18/16 08:48 Hypochromasia Not Reportable 11/18/16 08:48 Poikilocytosis Not Reportable 11/18/16 08:48 Anisocytosis 2+ 11/18/16 08:48 Microcytosis Not Reportable 11/18/16 08:48 Macrocytosis Not Reportable 11/18/16 08:48 Spherocytes Not Reportable 11/18/16 08:48 Pappenheimer Bodies Not Reportable 11/18/16 08:48 Sickle Cells Not Reportable 11/18/16 08:48 Target Cells Not Reportable 11/18/16 08:48 Tear Drop Cells Not Reportable 11/18/16 08:48 Ovalocytes Not Reportable 11/18/16 08:48 Helmet Cells Not Reportable 11/18/16 08:48 [place] Bodies Not Reportable 11/18/16 08:48 [employer] Rings Not Reportable 11/18/16 08:48 Mari Cells Not Reportable 11/18/16 08:48 Bite Cells Not Reportable 11/18/16 08:48 Crenated Cell Not Reportable 11/18/16 08:48 Elliptocytes Not Reportable 11/18/16 08:48 Acanthocytes (Spur) Not Reportable 11/18/16 08:48 Rouleaux Not Reportable 11/18/16 08:48 Hemoglobin C Crystals Not Reportable 11/18/16 08:48 Schistocytes Not Reportable 11/18/16 08:48 Malaria parasites Not Reportable 11/18/16 08:48 Timothy Bodies Not Reportable 11/18/16 08:48 Hem Pathologist Commnt No 11/18/16 08:48 PT 16.5 Sec. (12.2-14.9) H 11/18/16 08:48 INR 1.34 (0.87-1.13) H 11/18/16 08:48 Sodium 132 mmol/L (137-145) L 11/18/16 08:48 Potassium 5.4 mmol/L (3.6-5.0) H 11/18/16 08:48 Chloride 94.3 mmol/L (98-107) L 11/18/16 08:48 Carbon Dioxide 13 mmol/L (22-30) L 11/18/16 08:48 Anion Gap 30 mmol/L 11/18/16 08:48 BUN 120 mg/dL (9-20) H 11/18/16 08:48 Creatinine 3.9 mg/dL (0.8-1.5) H 11/18/16 08:48 Estimated GFR 19 ml/min 11/18/16 08:48 BUN/Creatinine Ratio 30.76 % 11/18/16 08:48 Glucose 515 mg/dL (75-100) H* 11/18/16 08:48 Lactic Acid 8.5 mmol/L (0.7-2.0) H* 11/18/16 08:48 Calcium 9.0 mg/dL (8.4-10.2) 11/18/16 08:48 Magnesium 2.2 mg/dL (1.7-2.3) 11/18/16 08:48 Total Bilirubin < 0.2 mg/dL (0.1-1.2) 11/18/16 08:48 AST 23 units/L (5-40) 11/18/16 08:48 ALT 16 units/L (7-56) 11/18/16 08:48 Alkaline Phosphatase 55 units/L (35-129) 11/18/16 08:48 Ammonia 49.0 umol/L (25-60) 11/18/16 08:48 Total Creatine Kinase 357 units/L (55-170) H 11/18/16 08:48 Troponin T 1.210 ng/mL (0.00-0.029) H* 11/18/16 08:48 NT-Pro-B Natriuret Pep 40046 pg/mL (0-900) H 11/18/16 08:48 Total Protein 6.2 g/dL (6.3-8.2) L 11/18/16 08:48 Albumin 3.3 g/dL (3.9-5) L 11/18/16 08:48 Albumin/Globulin Ratio 1.1 % 11/18/16 08:48 Triglycerides 154 mg/dL (2-149) H 11/18/16 08:48 Cholesterol 145 mg/dL (50-199) 11/18/16 08:48 LDL Cholesterol Direct 87 mg/dL (50-130) 11/18/16 08:48 HDL Cholesterol 28 mg/dL (40-59) L 11/18/16 08:48 Cholesterol/HDL Ratio 5.17 % 11/18/16 08:48 TSH 1.380 mlU/mL (0.270-4.200) 11/18/16 08:48 Urine Color Yellow (Yellow) 11/18/16 11:18 Urine Turbidity Slightly-cloudy (Clear) 11/18/16 11:18 Urine pH 5.0 (5.0-7.0) 11/18/16 11:18 Ur Specific [place] 1.011 (1.003-1.030) 11/18/16 11:18 Urine Protein 30 mg/dl mg/dL (Negative) 11/18/16 11:18 Urine Glucose (UA) >=500 mg/dL (Negative) 11/18/16 11:18 Urine Ketones Neg mg/dL (Negative) 11/18/16 11:18 Urine Blood Sm (Negative) 11/18/16 11:18 Urine Nitrite Neg (Negative) 11/18/16 11:18 Urine Bilirubin Neg (Negative) 11/18/16 11:18 Urine Urobilinogen < 2.0 mg/dL (<2.0) 11/18/16 11:18 Ur Leukocyte Esterase Neg (Negative) 11/18/16 11:18 Urine WBC (Auto) 4.0 /HPF (0.0-6.0) 11/18/16 11:18 Urine RBC (Auto) 3.0 /HPF (0.0-6.0) 11/18/16 11:18 U Epithel Cells (Auto) < 1.0 /HPF (0-13.0) 11/18/16 11:18 Urine Bacteria (Auto) 1+ /HPF (Negative) 11/18/16 11:18 Amorphous Crystals 2+ 11/18/16 11:18 Urine Mucus Few /HPF 11/18/16 11:18 Blood Type A POSITIVE 11/18/16 08:48 Antibody Screen Negative 11/18/16 08:48 Crossmatch See Detail 11/18/16 08:48 - Imaging and Cardiology EKG: image reviewed Chest x-ray: image reviewed (pulmonary vascular congestion) CT Scan - head: image reviewed (chronic infarct) Assessment and Plan Assessment and plan: Patient's assisted 6-year-old male with past medical history of chronic kidney disease, pulmonary embolism but not on anticoagulation, CHF, anemia, peptic ulcer disease who presented to the hospital with complaining of generalized weakness for about a week. Information was obtained from the as patient is severely weak and not provide much information. But as far as the patient in the past week has gradually been declining and yesterday was complaining of abdominal discomfort she initially thought that this was secondary to his reflux and encouraged him to make sure that his tooth is in place before eating. Most that when she came back his fluid was still on thoughts and he was basically very weak and almost least less prompted her to call the ambulance to bring her into the hospital. She also reports that she notes that he stool was dark the day before. But no james blood noted hemoptysis no hematemesis. No bright red blood per rectum. He is unable to provide to be any more information about his abdominal discomfort or if it is still present and was not perceived to be present on my physical exam. * Severe acute blood loss anemia with symptoms * Upper GI bleed * NSTEMI type 2 * Chronic systolic heart failure-EF 30-35% * Acute kidney injury on chronic CKD present on admission-likely secondary to vasomotor nephropathy creatinine baseline 3.4 * Hyperosmolar nonketotic hyperglycemia * Uncontrolled diabetes mellitus * Hx of PE- 05/2016 * Hypertension * Leukocytosis likely reactive * Hyperkalemia PLAN: * We'll admit patient to intensive care unit consult tungsten tender, cardiology and GI * We'll start patient on Protonix drip. Blood transfusion already ordered by the ER physician and is infusing * Accu-Cheks every 6 hours as patient is nothing by mouth, insulin sliding scale. * Patient has a known history of gastric ulcer concern for rebleed. We'll defer use of Sandostatin to GI * Review of previous echocardiogram shows an EF of 30-35% with RVSP of 47 minutes of mercury. Patient not on any beta carole or ACEI/ARB to bradycardia and renal insufficiency respectively * Doubt ACS but nevertheless will await cardiology input. * If no improvement in Renal function back to baseline, will obtain renal input * Avoid nephrotoxic medications * DVT and GI prophylaxis with SCDs and PPI drip as already started. * Fluid resuscitation and close attention to patient's congestive heart failure status. The high probability of a clinically significant, sudden or life threatening deterioration of the [GI, cardiac, Renal] system(s) required my full and direct attention, intervention and personal management. The aggregate critical care time was [35] minutes. This time is in addition to time spent performing reported procedures but includes the following: [x] Data Review and interpretation [x] Patient assessment and monitoring of vital signs [x] Documentation [x] Medication orders and management Advance Directives: Yes Plan of care discussed with patient/family: Yes
[2016-11-19] MEDS: NOVOLOG SUB-Q SCH
[2016-11-19] MEDS: DUONEB 0.5 MG-3 MG/3 ML SOLN IH SCH ×4 (01:59→20:53)
[2016-11-19 02:55] LABS: Creatine Kinase MB 18.9 ng/mL (0.0-4.0); Hematocrit 21.6 % (35.5-45.6); Hemoglobin 7.1 gm/dl (11.8-15.2)
[2016-11-19] MEDS ORDERED: PROTONIX 80 MG in NACL 0.9% 100 ML IV SCH (03:00)
[2016-11-19] MEDS ORDERED: NACL 0.9% 1000 ML 1,000 ML ONE (07:50)
[2016-11-19] MEDS ORDERED: APRESOLINE ONE (08:39)
[2016-11-19] MEDS ORDERED: DIPRIVAN 10 MG/ML IV ONE ×3 (12:01→12:02)
[2016-11-19] MEDS ORDERED: XYLOCAINE MPF 2% ONE (12:15)
--- NOTE | 2016-11-19 13:23 | Anesthesia Consultation ---
Anesthesia Consult and Med Hx Date of service: 11/19/16 - Airway Anesthetic Teeth Evaluation: Edentulous ROM Head & Neck: Adequate Mental/Hyoid Distance: Adequate Mallampati Class: Class II Intubation Access Assessment: Probably Good - Pulmonary Exam CTA: Yes - Cardiac Exam Cardiac Exam: RRR - Pre-Operative Health Status ASA Pre-Surgery Classification: ASA3 Proposed Anesthetic Plan: MAC - Pulmonary Hx Smoking: Yes (patient denied) Hx Asthma: No Hx Respiratory Symptoms: Yes (PE 05/2016) SOB: No COPD: Yes (per chart; patient denied) Hx Pneumonia: No Hx Sleep Apnea: No - Cardiovascular System Hx Hypertension: Yes (CHF per chart; EF <40% ) Hx Heart Attack/AMI: (RV overload with PFO and dilated RA & RV, bradycardic) Hx Cardia Arrhythmia: Yes (BBB per EGD; hx of afib per chart - pt denied) Hx Heart Murmur: Yes - Central Nervous System CVA: Yes (S/P Right Acute Embolic Infarcts 05/31/16) Hx Psychiatric Problems: No - Endocrine Hx Renal Disease: Yes (Stage 4 with need for dialysis recently; pt denied; bun 120, cr 3.9) Hx End Stage Renal Disease: No Hx Liver Disease: No Hx Non-Insulin Dependent Diabetes: No Hx Thyroid Disease: No - Hematic Hx Anemia: Yes - Other Systems Hx Alcohol Use: No (patient denied) Hx Substance Use: No Hx Cancer: No
--- NOTE | 2016-11-19 13:25 | Anesthesia Day of Surgery ---
Anesthesia Day of Surgery - Day of Surgery Patient Examined: Yes Patient H&P Reviewed: Yes Patient is NPO: Yes Beta Blockers: No Cardiac Clearance: No Pulmonary Clearance: No
--- NOTE | 2016-11-19 13:35 | Progress Note ---
Assessment and Plan Assessment and plan: Patient's assisted 6-year-old male with past medical history of chronic kidney disease, pulmonary embolism but not on anticoagulation, CHF, anemia, peptic ulcer disease who presented to the hospital with complaining of generalized weakness for about a week. Information was obtained from the as patient is severely weak and not provide much information. But as far as the patient in the past week has gradually been declining and yesterday was complaining of abdominal discomfort she initially thought that this was secondary to his reflux and encouraged him to make sure that his tooth is in place before eating. Most that when she came back his fluid was still on thoughts and he was basically very weak and almost least less prompted her to call the ambulance to bring her into the hospital. She also reports that she notes that he stool was dark the day before. But no james blood noted hemoptysis no hematemesis. No bright red blood per rectum. He is unable to provide to be any more information about his abdominal discomfort or if it is still present and was not perceived to be present on my physical exam. * Severe acute blood loss anemia with symptoms-Improved * Upper GI bleed-endoscopy with noted also split no visible bleed * NSTEMI type 2 * Chronic systolic heart failure-EF 30-35% * Acute kidney injury on chronic CKD present on admission-likely secondary to vasomotor nephropathy creatinine baseline 3.4 * Hyperosmolar nonketotic hyperglycemia * Uncontrolled diabetes mellitus * Hx of PE- 05/2016 * Hypertension * Leukocytosis likely reactive * Hyperkalemia * History of embolic stroke PLAN: * Cardiology GI and staff climate scientist input appreciated will transfer to the floor * We'll change to by mouth Protonix * History is as needed * Accu-Cheks before meals and daily at bedtime * Review of previous echocardiogram shows an EF of 30-35% with RVSP of 47 minutes of mercury. Patient not on any beta carole or ACEI/ARB to bradycardia and renal insufficiency respectively * Tinea To trend troponin, likely from demand ischemia. * If no improvement in Renal function back to baseline, will obtain renal input * Avoid nephrotoxic medications * DVT and GI prophylaxis with SCDs and PPI drip as already started. * Due to previous history of embolic stroke Coumadin and statins were recommended for the patient will restart the statin. Patient had stopped her Coumadin emotional to why but will have it reevaluated outpatient cancer and recent GI bleed outpatient. The high probability of a clinically significant, sudden or life threatening deterioration of the [GI, cardiac, Renal] system(s) required my full and direct attention, intervention and personal management. The aggregate critical care time was [35] minutes. This time is in addition to time spent performing reported procedures but includes the following: [x] Data Review and interpretation [x] Patient assessment and monitoring of vital signs [x] Documentation [x] Medication orders and management History Interval history: Follow-up GI bleed Patient seen and examined this morning in no acute distress, states that his hungry Denies any chest pain, nausea, vomiting, diarrhea No fever noted blood pressure controlled No adverse events reported to me by nursing staff Hospitalist Physical - Physical exam Narrative exam: VITAL SIGNS: Reviewed. GENERAL: The patient appeared well nourished and normally developed. Vital signs as documented. HEAD: No signs of head trauma. EYES: Pupils are equal. Extraocular motions intact. EARS: Hearing grossly intact. MOUTH: Oropharynx is normal. NECK: No adenopathy, no JVD. CHEST: Chest with clear breath sounds bilaterally. No wheezes, rales, or rhonchi. CARDIAC: Regular rate and rhythm. S1 and S2, without murmurs, gallops, or rubs. VASCULAR: No Edema. Peripheral pulses normal and equal in all extremities. ABDOMEN: Soft, without detectable tenderness. No sign of distention. No rebound or guarding, and no masses palpated. Bowel Sounds normal. MUSCULOSKELETAL: Good range of motion of all major joints. Extremities without clubbing, cyanosis or edema. NEUROLOGIC EXAM: Awake and oriented x 3. No focal sensory or strength deficits. Speech normal. Follows commands. PSYCHIATRIC: Mood normal. SKIN: Improved skin turgor - Constitutional Vitals: Temp Pulse Resp BP Pulse Ox 98.1 F 102 H 20 181/94 100 11/19/16 13:33 11/19/16 13:33 11/19/16 13:33 11/19/16 13:33 11/19/16 13:33 General appearance: Present: no acute distress (lethargic) Results - Labs CBC & Chem 7: 11/20/16 04:39 11/20/16 04:39 Labs: Laboratory Last Values WBC 13.7 K/mm3 (4.5-11.0) H 11/18/16 08:48 RBC 1.38 M/mm3 (3.65-5.03) L 11/18/16 08:48 Hgb 7.1 gm/dl (11.8-15.2) L D 11/19/16 01:45 Hct 21.6 % (35.5-45.6) L D 11/19/16 01:45 MCV 88 fl (84-94) 11/18/16 08:48 MCH 28 pg (28-32) 11/18/16 08:48 MCHC 32 % (32-34) 11/18/16 08:48 RDW 16.7 % (13.2-15.2) H 11/18/16 08:48 Plt Count 270 K/mm3 (140-440) 11/18/16 08:48 Add Manual Diff Complete 11/18/16 08:48 Total Counted 100 11/18/16 08:48 Seg Neuts % (Manual) 79.0 % (40.0-70.0) H 11/18/16 08:48 Band Neutrophils % 0 % 11/18/16 08:48 Lymphocytes % (Manual) 8.0 % (13.4-35.0) L 11/18/16 08:48 Reactive Lymphs % (Man) 0 % 11/18/16 08:48 Monocytes % (Manual) 11.0 % (0.0-7.3) H 11/18/16 08:48 Eosinophils % (Manual) 0 % (0.0-4.3) 11/18/16 08:48 Basophils % (Manual) 0 % (0.0-1.8) 11/18/16 08:48 Metamyelocytes % 2.0 % 11/18/16 08:48 Myelocytes % 0 % 11/18/16 08:48 Promyelocytes % 0 % 11/18/16 08:48 Blast Cells % 0 % 11/18/16 08:48 Nucleated RBC % Not Reportable 11/18/16 08:48 Seg Neutrophils # Man 10.8 K/mm3 (1.8-7.7) H 11/18/16 08:48 Band Neutrophils # 0.0 K/mm3 11/18/16 08:48 Lymphocytes # (Manual) 1.1 K/mm3 (1.2-5.4) L 11/18/16 08:48 Abs React Lymphs (Man) 0.0 K/mm3 11/18/16 08:48 Monocytes # (Manual) 1.5 K/mm3 (0.0-0.8) H 11/18/16 08:48 Eosinophils # (Manual) 0.0 K/mm3 (0.0-0.4) 11/18/16 08:48 Basophils # (Manual) 0.0 K/mm3 (0.0-0.1) 11/18/16 08:48 Metamyelocytes # 0.3 K/mm3 11/18/16 08:48 Myelocytes # 0.0 K/mm3 11/18/16 08:48 Promyelocytes # 0.0 K/mm3 11/18/16 08:48 Blast Cells # 0.0 K/mm3 11/18/16 08:48 WBC Morphology Not Reportable 11/18/16 08:48 Hypersegmented Neuts Not Reportable 11/18/16 08:48 Hyposegmented Neuts Not Reportable 11/18/16 08:48 Hypogranular Neuts Not Reportable 11/18/16 08:48 Smudge Cells Not Reportable 11/18/16 08:48 Toxic Granulation Not Reportable 11/18/16 08:48 Toxic Vacuolation Not Reportable 11/18/16 08:48 Dohle Bodies Not Reportable 11/18/16 08:48 Pelger-Huet Anomaly Not Reportable 11/18/16 08:48 Scotty Rods Not Reportable 11/18/16 08:48 Platelet Estimate Appears normal 11/18/16 08:48 Clumped Platelets Not Reportable 11/18/16 08:48 Plt Clumps, EDTA Not Reportable 11/18/16 08:48 Large Platelets Not Reportable 11/18/16 08:48 Giant Platelets Not Reportable 11/18/16 08:48 Platelet Satelliting Not Reportable 11/18/16 08:48 Plt Morphology Comment Not Reportable 11/18/16 08:48 RBC Morphology Not Reportable 11/18/16 08:48 Dimorphic RBCs Not Reportable 11/18/16 08:48 Polychromasia Few 11/18/16 08:48 Hypochromasia Not Reportable 11/18/16 08:48 Poikilocytosis Not Reportable 11/18/16 08:48 Anisocytosis 2+ 11/18/16 08:48 Microcytosis Not Reportable 11/18/16 08:48 Macrocytosis Not Reportable 11/18/16 08:48 Spherocytes Not Reportable 11/18/16 08:48 Pappenheimer Bodies Not Reportable 11/18/16 08:48 Sickle Cells Not Reportable 11/18/16 08:48 Target Cells Not Reportable 11/18/16 08:48 Tear Drop Cells Not Reportable 11/18/16 08:48 Ovalocytes Not Reportable 11/18/16 08:48 Helmet Cells Not Reportable 11/18/16 08:48 [place] Bodies Not Reportable 11/18/16 08:48 [place] Rings Not Reportable 11/18/16 08:48 [place] Cells Not Reportable 11/18/16 08:48 Bite Cells Not Reportable 11/18/16 08:48 Crenated Cell Not Reportable 11/18/16 08:48 Elliptocytes Not Reportable 11/18/16 08:48 Acanthocytes (Spur) Not Reportable 11/18/16 08:48 Rouleaux Not Reportable 11/18/16 08:48 Hemoglobin C Crystals Not Reportable 11/18/16 08:48 Schistocytes Not Reportable 11/18/16 08:48 Malaria parasites Not Reportable 11/18/16 08:48 Timothy Bodies Not Reportable 11/18/16 08:48 Hem Pathologist Commnt No 11/18/16 08:48 PT 16.5 Sec. (12.2-14.9) H 11/18/16 08:48 INR 1.34 (0.87-1.13) H 11/18/16 08:48 Sodium 132 mmol/L (137-145) L 11/18/16 08:48 Potassium 5.4 mmol/L (3.6-5.0) H 11/18/16 08:48 Chloride 94.3 mmol/L (98-107) L 11/18/16 08:48 Carbon Dioxide 13 mmol/L (22-30) L 11/18/16 08:48 Anion Gap 30 mmol/L 11/18/16 08:48 BUN 120 mg/dL (9-20) H 11/18/16 08:48 Creatinine 3.9 mg/dL (0.8-1.5) H 11/18/16 08:48 Estimated GFR 19 ml/min 11/18/16 08:48 BUN/Creatinine Ratio 30.76 % 11/18/16 08:48 Glucose 515 mg/dL (75-100) H* 11/18/16 08:48 POC Glucose 186 (70-105) H 11/19/16 05:26 Lactic Acid 8.5 mmol/L (0.7-2.0) H* 11/18/16 08:48 Calcium 9.0 mg/dL (8.4-10.2) 11/18/16 08:48 Magnesium 2.2 mg/dL (1.7-2.3) 11/18/16 08:48 Total Bilirubin < 0.2 mg/dL (0.1-1.2) 11/18/16 08:48 AST 23 units/L (5-40) 11/18/16 08:48 ALT 16 units/L (7-56) 11/18/16 08:48 Alkaline Phosphatase 55 units/L (35-129) 11/18/16 08:48 Ammonia 49.0 umol/L (25-60) 11/18/16 08:48 Total Creatine Kinase 382 units/L (55-170) H 11/19/16 01:45 CK-MB (CK-2) 18.9 ng/mL (0.0-4.0) H 11/19/16 01:45 CK-MB (CK-2) Rel Index 4.9 (0-4) H 11/19/16 01:45 Troponin T 2.390 ng/mL (0.00-0.029) H* D 11/19/16 01:45 NT-Pro-B Natriuret Pep 49101 pg/mL (0-900) H 11/18/16 08:48 Total Protein 6.2 g/dL (6.3-8.2) L 11/18/16 08:48 Albumin 3.3 g/dL (3.9-5) L 11/18/16 08:48 Albumin/Globulin Ratio 1.1 % 11/18/16 08:48 Triglycerides 154 mg/dL (2-149) H 11/18/16 08:48 Cholesterol 145 mg/dL (50-199) 11/18/16 08:48 LDL Cholesterol Direct 87 mg/dL (50-130) 11/18/16 08:48 HDL Cholesterol 28 mg/dL (40-59) L 11/18/16 08:48 Cholesterol/HDL Ratio 5.17 % 11/18/16 08:48 TSH 1.380 mlU/mL (0.270-4.200) 11/18/16 08:48 Urine Color Yellow (Yellow) 11/18/16 11:18 Urine Turbidity Slightly-cloudy (Clear) 11/18/16 11:18 Urine pH 5.0 (5.0-7.0) 11/18/16 11:18 Ur Specific [place] 1.011 (1.003-1.030) 11/18/16 11:18 Urine Protein 30 mg/dl mg/dL (Negative) 11/18/16 11:18 Urine Glucose (UA) >=500 mg/dL (Negative) 11/18/16 11:18 Urine Ketones Neg mg/dL (Negative) 11/18/16 11:18 Urine Blood Sm (Negative) 11/18/16 11:18 Urine Nitrite Neg (Negative) 11/18/16 11:18 Urine Bilirubin Neg (Negative) 11/18/16 11:18 Urine Urobilinogen < 2.0 mg/dL (<2.0) 11/18/16 11:18 Ur Leukocyte Esterase Neg (Negative) 11/18/16 11:18 Urine WBC (Auto) 4.0 /HPF (0.0-6.0) 11/18/16 11:18 Urine RBC (Auto) 3.0 /HPF (0.0-6.0) 11/18/16 11:18 U Epithel Cells (Auto) < 1.0 /HPF (0-13.0) 11/18/16 11:18 Urine Bacteria (Auto) 1+ /HPF (Negative) 11/18/16 11:18 Amorphous Crystals 2+ 11/18/16 11:18 Urine Mucus Few /HPF 11/18/16 11:18 Blood Type A POSITIVE 11/18/16 08:48 Antibody Screen Negative 11/18/16 08:48 Crossmatch See Detail 11/18/16 08:48
--- NOTE | 2016-11-19 13:48 | Progress Note ---
Assessment and Plan GI bleed/severe anemia transfuse as needed hx. of gastric ulcer (05/2016) await EGD findings, management per GI Elevated troponin-->likely due to CKD/cardiomyopathy/demand ischemia will trend no chest pain or EKG changes stress MPI 04/2016: small, mild, fixed inferior wall defect, no ischemia Chronic systolic heart failure Echo 04/2016: EF 30-35%, mild MR, moderate-severe TR, RVSP 47 mmHg no beta carole due to hx. of marked bradycardia on BB no ACEI/ARB due to renal insufficiency Non-ischemic cardiomyopathy EF 30-35% Hx. of pulmonary embolus (05/2016) CVA (05/2016) Brain MRI 05/31/16: multiple focal areas of ischemia on the R side of the brain, acute stroke in the R posterior lateral/parietal area, multiple small ischemic strokes in the brainstem and cerebellum consistent with an embolic event NERI 06/02/16: PFO, severe RA enlargement, RV moderately dilated/dysfunctional coumadin and statin therapy recommended by neurology Chronic kidney disease per nephrology Hypertension initiate hydralazine hx. of marked sinus gaby while on BB/clonidine Diabetes Anemia Elevated troponin likely due to CKD/cardiomyopathy/demand ischemia. Patient is chest pain free. Will continue to trend enzymes and optimize anti-hypertensive regimen. The patient has been seen in conjunction with Dr. Robledo who agrees with the assessment and plan of care. Subjective Date of service: 11/19/16 Principal diagnosis: elevated troponin Interval history: The patient is resting in bed. No chest pain or shortness of breath. Sinus rhythm on the monitor. Objective Last Vital Signs Temp 98.1 F 11/19/16 13:33 Pulse 102 H 11/19/16 13:33 Resp 20 11/19/16 13:33 BP 181/94 11/19/16 13:33 Pulse Ox 100 11/19/16 13:33 - Physical Examination General: No Apparent Distress HEENT: Positive: Normocephaly, Mucus Membranes Moist Neck: Positive: neck supple, trachea midline Cardiac: Positive: Reg Rate and Rhythm, S1/S2 Lungs: Positive: Decreased Breath Sounds Neuro: Positive: Grossly Intact Abdomen: Positive: Soft, Active Bowel Sounds. Negative: Tender Extremities: Absent: edema - Labs and Meds Cardiac Enzymes 11/19/16 Range/Units 01:45 CK-MB (CK-2) 18.9 H (0.0-4.0) ng/mL CBC 11/19/16 Range/Units 01:45 Hgb 7.1 L D (11.8-15.2) gm/dl Hct 21.6 L D (35.5-45.6) % - Imaging and Cardiology EKG: image reviewed Echo: report reviewed (04/2016: EF 30-35%, mild MR, moderate-severe TR, RVSP 47 mmHg) - Telemetry EKG Rhythm: Sinus Rhythm - EKG Sinus rhythms and dysrhythmias: sinus rhythm Repolarization changes or abnormalities: nonspecific abnormality, ST segment, and/or T wave
[2016-11-19] MEDS ORDERED: NACL 0.9% 1000 ML 1,000 ML IV SCH (14:00)
--- NOTE | 2016-11-19 14:30 | Progress Note ---
Assessment and Plan 66 y/o male with GI bleed and symptomatic anemia, most likely secondary to acute blood loss, found to have ulcers, nonbleeding status post biopsy. 1. Likely can change PPI drip to IV BID 2. Per GI can have nourishment 3. Should be stable for transfer to floor with now seeing ulcers and no active bleeding. CCT 31 minutes. Subjective Date of service: 11/19/16 Principal diagnosis: elevated troponin Interval history: No further bleeding events last night. H/H stable post transfusion. Remainder is negative. Suppose to be scoped today per GI Objective - Constitutional Vitals: Vital Signs - 12hr 11/19/16 11/19/16 11/19/16 03:00 12:00 12:47 Temperature 98.1 F 98.1 F Pulse Rate 103 H 102 H 103 H Respiratory 20 14 Rate Respiratory 20 Rate [denies pain] Blood Pressure 181/94 142/75 O2 Sat by Pulse 100 100 88 Oximetry 11/19/16 11/19/16 13:03 13:33 Temperature 98.1 F Pulse Rate 96 H 102 H Respiratory 13 20 Rate Respiratory Rate [denies pain] Blood Pressure 165/87 181/94 O2 Sat by Pulse 99 100 Oximetry General appearance: Present: no acute distress - EENT Eyes: PERRL, EOM intact ENT: hearing intact - Respiratory Respiratory effort: normal Respiratory: negative: CTA - Cardiovascular Rhythm: regular Heart Sounds: Present: S1 & S2 - Labs CBC & Chem 7: 11/19/16 01:45 11/18/16 08:48 Labs: Abnormal lab results 11/18/16 11/18/16 11/18/16 Range/Units 13:22 16:24 18:10 Hgb (11.8-15.2) gm/dl Hct (35.5-45.6) % POC Glucose 431 H 429 H 334 H (70-105) Total Creatine Kinase (55-170) units/L CK-MB (CK-2) (0.0-4.0) ng/mL CK-MB (CK-2) Rel Index (0-4) Troponin T (0.00-0.029) ng/mL 11/18/16 11/19/16 11/19/16 Range/Units 22:46 01:45 01:45 Hgb 7.1 L D (11.8-15.2) gm/dl Hct 21.6 L D (35.5-45.6) % POC Glucose 189 H (70-105) Total Creatine Kinase 382 H (55-170) units/L CK-MB (CK-2) 18.9 H (0.0-4.0) ng/mL CK-MB (CK-2) Rel Index 4.9 H (0-4) Troponin T 2.390 H* D (0.00-0.029) ng/mL 11/19/16 Range/Units 05:26 Hgb (11.8-15.2) gm/dl Hct (35.5-45.6) % POC Glucose 186 H (70-105) Total Creatine Kinase (55-170) units/L CK-MB (CK-2) (0.0-4.0) ng/mL CK-MB (CK-2) Rel Index (0-4) Troponin T (0.00-0.029) ng/mL
[2016-11-19] MEDS ORDERED: APRESOLINE IV PRN (14:44)
[2016-11-19 14:49] LABS: BUN/Creatinine Ratio 28.52; Calcium 8.4 mg/dL (8.4-10.2); Chloride 106.9 mmol/L (98-107); Creatine Kinase MB 18.9 ng/mL (0.0-4.0); Potassium 4.3 mmol/L (3.6-5.0)
[2016-11-19 17:03] LABS: Hematocrit 23.1 % (35.5-45.6); Hemoglobin 7.7 gm/dl (11.8-15.2); Mean Corpuscular HGB Conc 33 % (32-34); Mean Corpuscular Hemoglobin 30 pg (28-32); Mean Corpuscular Volume 90 fl (84-94); Platelet Count 221 K/mm3 (140-440); Red Blood Count 2.58 M/mm3 (3.65-5.03); Red Cell Distribution Width 16.8 % (13.2-15.2); White Blood Count 10.6 K/mm3 (4.5-11.0)
--- NOTE | 2016-11-19 18:47 | Operative Report ---
LOCATION: [facility], bed 257 ICU. PREOPERATIVE DIAGNOSIS: Upper gastrointestinal bleeding manifested by melena and severe anemia. POSTOPERATIVE DIAGNOSES: Multiple benign appearing prepyloric and antral ulcers. Normal duodenum and esophagus. No varices. ENDOSCOPIST: Dr. Peoples. MEDICATIONS: Propofol per anesthesia -- see separate records for details. ESTIMATED BLOOD LOSS: Zero. PROCEDURE: Esophagogastroduodenoscopy with biopsies for H. pylori testing. PROCEDURE IN DETAIL: After careful discussion of the nature and purpose of the procedure as well as details of the technique, risks, benefits, and alternatives, consent was obtained. He was placed in the left lateral decubitus position, medicated per anesthesia. The procedure was performed at bedside in the Intensive Care Unit. The tip of the [employer] [facility] EQ570 videoscope was carefully passed per oral under direct vision into the esophagus and advanced to the stomach and descending duodenum. There was no fresh blood in the upper digestive tract. The third portion, second portion, and duodenal bulb were normal. The pylorus was symmetrical and normal. The scope was withdrawn into the stomach. The stomach was gently insufflated with air. There were multiple ulcers in the prepyloric area ranging from 1 cm to 2.5 cm in size. The ulcers were shallow and flat. There was one ulcer which had a flat vessel present with no protrusion of the vessel, nor any bleeding in the mid antrum. Three biopsies were taken away from the ulcers to assess for H. pylori. The proximal antrum was normal. The stomach was further insufflated and the scope retroflexed. Cardia, fundus, and body were normal. There were no varices in the cardia. The scope was then withdrawn in the forward view. The EG junction was at 40 cm. The Z-line was sharp. The esophageal body was normal throughout. There were no esophageal varices. The procedure was well tolerated. CONCLUSIONS: 1. Multiple stellate benign appearing ulcer craters in the prepyloric antrum and distal third of the antrum. One ulcer with a flat vessel, but no high risk features of recurrent bleeding. 2. No varices in the esophagus or stomach. PLAN: Advance diet. The patient has a low risk of bleeding. Continue proton-pump inhibitor therapy. Await results of biopsies for H. pylori. Repeat endoscopy in 6 weeks for definitive exclusion of malignancy. JOB# [id number] ANIKA/WALESKA
[2016-11-19] MEDS: APRESOLINE PO SCH (21:29)
[2016-11-20] MEDS: NOVOLOG SUB-Q SCH ×3 (00:38→12:40)
[2016-11-20] MEDS: DUONEB 0.5 MG-3 MG/3 ML SOLN IH SCH ×3 (03:12→15:03)
[2016-11-20] MEDS: APRESOLINE PO SCH (05:07)
[2016-11-20 05:29] LABS: Hematocrit 22.1 % (35.5-45.6); Hemoglobin 7.4 gm/dl (11.8-15.2); Mean Corpuscular HGB Conc 33 % (32-34); Mean Corpuscular Hemoglobin 30 pg (28-32); Mean Corpuscular Volume 90 fl (84-94); Platelet Count 221 K/mm3 (140-440); Red Blood Count 2.47 M/mm3 (3.65-5.03); Red Cell Distribution Width 17.4 % (13.2-15.2); White Blood Count 8.8 K/mm3 (4.5-11.0)
[2016-11-20 05:43] LABS: BUN/Creatinine Ratio 22.14; Chloride 105.6 mmol/L (98-107); Potassium 4.7 mmol/L (3.6-5.0)
--- NOTE | 2016-11-20 09:49 | Progress Note ---
Assessment and Plan GI bleed/severe anemia hgb improved s/p PRBC transfusion hx. of gastric ulcer (05/2016) EGD 11/19/16-->no active bleeding NSTEMI type II-->likely due to CKD/cardiomyopathy/demand ischemia no chest pain or EKG changes stress MPI 04/2016: small, mild, fixed inferior wall defect, no ischemia Chronic systolic heart failure Echo 04/2016: EF 30-35%, mild MR, moderate-severe TR, RVSP 47 mmHg no beta carole due to hx. of marked bradycardia on BB no ACEI/ARB due to renal insufficiency Non-ischemic cardiomyopathy EF 30-35% Hx. of pulmonary embolus (05/2016) CVA (05/2016) Brain MRI 05/31/16: multiple focal areas of ischemia on the R side of the brain, acute stroke in the R posterior lateral/parietal area, multiple small ischemic strokes in the brainstem and cerebellum consistent with an embolic event NERI 06/02/16: PFO, severe RA enlargement, RV moderately dilated/dysfunctional coumadin and statin therapy recommended by neurology Chronic kidney disease per nephrology Hypertension continue hydralazine, will increase to 100mg BID hx. of marked sinus gaby while on BB/clonidine Diabetes Anemia Elevated troponin likely due to CKD/cardiomyopathy/demand ischemia. Given absence of chest pain and negative stress test in 04/2016, recommend continuing medical management. The patient has been seen in conjunction with Dr. Robledo who agrees with the assessment and plan of care. Subjective Date of service: 11/20/16 Principal diagnosis: elevated troponin Interval history: The patient is resting in bed. No chest pain or shortness of breath. Sinus rhythm on the monitor. Objective Last Vital Signs Temp 98.3 F 11/20/16 08:00 Pulse 105 H 11/20/16 09:00 Resp 15 11/20/16 09:00 BP 156/91 11/20/16 09:00 Pulse Ox 97 11/20/16 02:30 - Physical Examination General: No Apparent Distress HEENT: Positive: Normocephaly, Mucus Membranes Moist Neck: Positive: neck supple, trachea midline Cardiac: Positive: Reg Rate and Rhythm, S1/S2, Systolic Murmur Lungs: Positive: Decreased Breath Sounds Neuro: Positive: Grossly Intact Abdomen: Positive: Soft, Active Bowel Sounds. Negative: Tender Extremities: Absent: edema - Labs and Meds Cardiac Enzymes 11/19/16 Range/Units 04:00 CK-MB (CK-2) 18.9 H (0.0-4.0) ng/mL CBC 11/19/16 11/20/16 Range/Units 16:33 04:39 WBC 10.6 8.8 (4.5-11.0) K/mm3 RBC 2.58 L 2.47 L (3.65-5.03) M/mm3 Hgb 7.7 L 7.4 L (11.8-15.2) gm/dl Hct 23.1 L 22.1 L (35.5-45.6) % Plt Count 221 221 (140-440) K/mm3 Comprehensive Metabolic Panel 11/19/16 11/20/16 Range/Units 04:00 04:39 Sodium 143 D 140 (137-145) mmol/L Potassium 4.3 D 4.7 (3.6-5.0) mmol/L Chloride 106.9 105.6 (98-107) mmol/L Carbon Dioxide 20 L D 19 L (22-30) mmol/L BUN 97 H 62 H (9-20) mg/dL Creatinine 3.4 H 2.8 H (0.8-1.5) mg/dL Glucose 170 H 152 H (75-100) mg/dL Calcium 8.4 8.0 L (8.4-10.2) mg/dL - Imaging and Cardiology EKG: image reviewed Echo: report reviewed (04/2016: EF 30-35%, mild MR, moderate-severe TR, RVSP 47 mmHg) - Telemetry EKG Rhythm: Sinus Rhythm - EKG Sinus rhythms and dysrhythmias: sinus rhythm Repolarization changes or abnormalities: nonspecific abnormality, ST segment, and/or T wave
[2016-11-20] MEDS ORDERED: APRESOLINE PO SCH ×2 (10:00→22:00)
--- NOTE | 2016-11-20 10:01 | Consultation ---
History of Present Illness - Reason for Consult Consult date: 11/20/16 acute renal failure, chronic renal failure Requesting physician: BG BLANC Past History Past Medical History: anemia, arthritis, diabetes, heart failure, hypertension, hyperlipidemia, pulmonary embolism, renal failure, stroke, other (chronic kidney disease) Past Surgical History: No surgical history Social history: , lives with family. denies: smoking, alcohol abuse, prescription drug abuse, IV drug use Family history: hypertension Medications and Allergies Allergies Allergy/AdvReac Type Severity Reaction Status Date / Time No Known Allergies Allergy Verified 05/25/15 10:29 Home Medications Medication Instructions Recorded Confirmed Last Taken Type Aspirin EC [Aspirin Enteric Coated 81 mg PO QDAY 11/18/16 11/18/16 Unknown History TAB] Furosemide [Lasix TAB] 40 mg PO QDAY 11/18/16 11/18/16 Unknown History Lisinopril [Zestril TAB] 40 mg PO QDAY 11/18/16 11/18/16 Unknown History Metolazone [Zaroxolyn] 5 mg PO QDAY 11/18/16 11/18/16 Unknown History Pravastatin Sodium [Pravastatin] 40 mg PO QHS 11/18/16 11/18/16 Unknown History cloNIDine [Catapres] 0.2 mg PO TID 11/18/16 11/18/16 Unknown History Active Meds: Active Medications Al Hydrox/Mg Hydrox/Simethicone (Alum-Mag Hydrox-Simeth [id number]/5ml) 30 ml PO Q4H PRN PRN Reason: Indigestion Albuterol (Proventil) 2.5 mg IH Q3HRT PRN PRN Reason: Shortness Of Breath Albuterol/Ipratropium (Duoneb 0.5 Mg-3 Mg/3 Ml Soln) 1 ampul IH Q6HRT ELISSA Last Admin: 11/20/16 03:12 Dose: Not Given Bisacodyl (Dulcolax) 10 mg VA QDAY PRN PRN Reason: constipation unrelieved by MOM Dextrose (D50w (25gm)) 50 ml IV PRN PRN PRN Reason: Hypoglycemia Hydralazine HCl (Apresoline) 20 mg IV Q6H PRN PRN Reason: SBP>170 Last Admin: 11/19/16 19:48 Dose: 20 mg Hydralazine HCl (Apresoline) 100 mg PO BID ELISSA Pantoprazole Sodium 80 mg/ (Sodium Chloride) 100 mls @ 10 mls/hr IV DIRECT ELISSA PRN Reason: 8 MG/HR Sodium Chloride (Nacl 0.9% 1000 Ml) 1,000 mls @ 50 mls/hr IV DIRECT ELISSA Insulin Aspart (Novolog) 0 units SUB-Q Q6HR ELISSA PRN Reason: Protocol Last Admin: 11/20/16 06:53 Dose: 2 units Magnesium Hydroxide (Milk Of Magnesia) 30 ml PO Q4H PRN PRN Reason: Constipation Morphine Sulfate (Morphine) 2 mg IV Q4H PRN PRN Reason: Pain, Moderate (4-6) Simvastatin (Zocor) 40 mg PO QHS ELISSA Review of Systems Constitutional: anorexia, fatigue, weakness Gastrointestinal: abdominal pain, change in bowel habits Exam - Vital Signs Vital signs: Vital Signs Pulse Ox 100 11/18/16 07:54 - Physical Exam Narrative exam: General appearance: no acute distress (lethargic) HEENT: Positive: Normocephaly, Mucus Membranes Moist Neck: Positive: neck supple, trachea midline Cardiac: Positive: Reg Rate and Rhythm, S1/S2, Systolic Murmur Lungs: Positive: Decreased Breath Sounds Neuro: Positive: Other (pt. very lethargic) Abdomen: Positive: Soft, Active Bowel Sounds. Negative: Tender Extremities: Absent: edema Results - Lab Results 11/20/16 04:39 11/20/16 04:39 Most recent lab results Calcium 8.0 mg/dL (8.4-10.2) L 11/20/16 04:39 Magnesium 2.2 mg/dL (1.7-2.3) 11/18/16 08:48 Assessment and Plan Assessment: * Stage IV chronic kidney disease * quang * GI bleeding * Anemia of ABL--POA * h/o CVA * h/o PE * Chronic systolic heart failure TTE: 30-35% LVEF (April 2016); 35-40% (April 2015 ) * Type II DM * Accelerated hypertension * Subnephrotic range proteinuria Plan: * cr is stable today * azotemia improved, likely from GI bleeding * avoid nephrotoxins * daily lytes * follow hb/hct--prn prbcs * did require temporary hemodailysis off hemodialysis since 05/22/16. * strict i/os * Avoid nephrotoxic agents * Dose medications for renal function * Restrict K intake. Fluid restriction 1500/day
--- NOTE | 2016-11-20 11:10 | Progress Note ---
Assessment and Plan 66 y/o male with GI bleed and symptomatic anemia, most likely secondary to acute blood loss. Per nursing, patient to have rpt h/h at noon. If stable, discharge home Stable from critical care standpoint Subjective Date of service: 11/20/16 Principal diagnosis: elevated troponin Interval history: No further bleeding. H/H stable. Objective - Constitutional Vitals: Vital Signs - 12hr 11/19/16 11/20/16 11/20/16 23:30 00:00 00:30 Temperature 97.9 F Pulse Rate 112 H 108 H 114 H Respiratory 17 14 18 Rate Blood Pressure 168/90 176/101 172/102 O2 Sat by Pulse 99 99 Oximetry 11/20/16 11/20/16 11/20/16 01:00 01:30 02:00 Temperature Pulse Rate 104 H 101 H 104 H Respiratory 16 14 15 Rate Blood Pressure 160/95 163/92 162/87 O2 Sat by Pulse 99 99 97 Oximetry 11/20/16 11/20/16 11/20/16 02:30 03:00 03:30 Temperature Pulse Rate 104 H 106 H 102 H Respiratory 16 17 15 Rate Blood Pressure 164/87 159/90 157/87 O2 Sat by Pulse 97 Oximetry 11/20/16 11/20/16 11/20/16 04:00 04:30 05:00 Temperature 98.0 F Pulse Rate 103 H 105 H 106 H Respiratory 15 15 20 Rate Blood Pressure 159/86 151/85 O2 Sat by Pulse Oximetry 11/20/16 11/20/16 11/20/16 05:30 06:00 06:30 Temperature Pulse Rate 101 H 104 H 101 H Respiratory 13 16 15 Rate Blood Pressure 163/93 169/102 151/88 O2 Sat by Pulse Oximetry 11/20/16 11/20/16 11/20/16 07:00 07:30 08:00 Temperature 98.3 F Pulse Rate 103 H 102 H 106 H Respiratory 17 15 18 Rate Blood Pressure 163/91 161/92 154/85 O2 Sat by Pulse Oximetry 11/20/16 11/20/16 08:30 09:00 Temperature Pulse Rate 107 H 105 H Respiratory 19 15 Rate Blood Pressure 167/90 156/91 O2 Sat by Pulse Oximetry - Labs CBC & Chem 7: 11/20/16 04:39 11/20/16 04:39 Labs: Abnormal lab results 11/19/16 11/19/16 11/19/16 Range/Units 04:00 12:10 16:26 RBC (3.65-5.03) M/mm3 Hgb (11.8-15.2) gm/dl Hct (35.5-45.6) % RDW (13.2-15.2) % Carbon Dioxide 20 L D (22-30) mmol/L BUN 97 H (9-20) mg/dL Creatinine 3.4 H (0.8-1.5) mg/dL Glucose 170 H (75-100) mg/dL POC Glucose 210 H 280 H (70-105) Calcium (8.4-10.2) mg/dL Total Creatine Kinase 350 H (55-170) units/L CK-MB (CK-2) 18.9 H (0.0-4.0) ng/mL CK-MB (CK-2) Rel Index 5.4 H (0-4) Troponin T 2.490 H* (0.00-0.029) ng/mL 11/19/16 11/20/16 11/20/16 Range/Units 16:33 00:25 04:39 RBC 2.58 L 2.47 L (3.65-5.03) M/mm3 Hgb 7.7 L 7.4 L (11.8-15.2) gm/dl Hct 23.1 L 22.1 L (35.5-45.6) % RDW 16.8 H 17.4 H (13.2-15.2) % Carbon Dioxide (22-30) mmol/L BUN (9-20) mg/dL Creatinine (0.8-1.5) mg/dL Glucose (75-100) mg/dL POC Glucose 306 H (70-105) Calcium (8.4-10.2) mg/dL Total Creatine Kinase (55-170) units/L CK-MB (CK-2) (0.0-4.0) ng/mL CK-MB (CK-2) Rel Index (0-4) Troponin T (0.00-0.029) ng/mL 11/20/16 Range/Units 04:39 RBC (3.65-5.03) M/mm3 Hgb (11.8-15.2) gm/dl Hct (35.5-45.6) % RDW (13.2-15.2) % Carbon Dioxide 19 L (22-30) mmol/L BUN 62 H (9-20) mg/dL Creatinine 2.8 H (0.8-1.5) mg/dL Glucose 152 H (75-100) mg/dL POC Glucose (70-105) Calcium 8.0 L (8.4-10.2) mg/dL Total Creatine Kinase (55-170) units/L CK-MB (CK-2) (0.0-4.0) ng/mL CK-MB (CK-2) Rel Index (0-4) Troponin T (0.00-0.029) ng/mL
--- NOTE | 2016-11-20 13:56 | Gastroenterology Progress Note ---
Assessment and Plan 1.Severe Anemia 2. Melena -S/P EGD with PUD -Continue PPI through today, then transition to PPI IV BID. -No blood thinning meds -H/H stable. -Avoid NSAIDS -OK to advance diet as tolerated. Subjective Date of service: 11/20/16 Principal diagnosis: elevated troponin Interval history: Patient is awake and alert. Denies pain. Objective - Constitutional Vitals: Temp Pulse Resp BP Pulse Ox 98.4 F 103 H 16 165/93 96 11/20/16 12:00 11/20/16 13:00 11/20/16 13:00 11/20/16 13:00 11/20/16 13:00 General appearance: no acute distress - EENT Eyes: EOM intact ENT: hearing intact - Cardiovascular Rhythm: regular Heart Sounds: Present: S1 & S2 - Gastrointestinal General gastrointestinal: Present: soft, non-tender, normal bowel sounds - Integumentary Integumentary: Present: warm, dry - Labs CBC & Chem 7: 11/20/16 04:39 11/20/16 04:39 Labs: Laboratory Results - last 24 hr 11/19/16 11/19/16 11/19/16 04:00 12:10 16:26 WBC RBC Hgb Hct MCV MCH MCHC RDW Plt Count Sodium 143 D Potassium 4.3 D Chloride 106.9 Carbon Dioxide 20 L D Anion Gap 20 BUN 97 H Creatinine 3.4 H Estimated GFR 22 BUN/Creatinine Ratio 28.52 Glucose 170 H POC Glucose 210 H 280 H Calcium 8.4 Total Creatine Kinase 350 H CK-MB (CK-2) 18.9 H CK-MB (CK-2) Rel Index 5.4 H Troponin T 2.490 H* 11/19/16 11/20/16 11/20/16 16:33 00:25 04:39 WBC 10.6 8.8 RBC 2.58 L 2.47 L Hgb 7.7 L 7.4 L Hct 23.1 L 22.1 L MCV 90 90 MCH 30 30 MCHC 33 33 RDW 16.8 H 17.4 H Plt Count 221 221 Sodium Potassium Chloride Carbon Dioxide Anion Gap BUN Creatinine Estimated GFR BUN/Creatinine Ratio Glucose POC Glucose 306 H Calcium Total Creatine Kinase CK-MB (CK-2) CK-MB (CK-2) Rel Index Troponin T 11/20/16 11/20/16 04:39 12:04 WBC RBC Hgb Hct MCV MCH MCHC RDW Plt Count Sodium 140 Potassium 4.7 Chloride 105.6 Carbon Dioxide 19 L Anion Gap 20 BUN 62 H Creatinine 2.8 H Estimated GFR 28 BUN/Creatinine Ratio 22.14 Glucose 152 H POC Glucose 338 H Calcium 8.0 L Total Creatine Kinase CK-MB (CK-2) CK-MB (CK-2) Rel Index Troponin T
[2016-11-20 14:22] VITALS: BP 185/108
--- NOTE | 2016-11-20 14:27 | Discharge Summary ---
Providers - Providers Date of Admission: 11/18/16 10:24 Date of discharge: 11/20/16 Attending physician: BG BLANC MD 11/18/16 10:29 Consult to Physician [CONS] Routine Consulting Provider: YASMIN SONI Reason For Exam: NSTEMI TYPE [address] consult to:: Notified:: yes If yes, spoke with:: bailey 11/20/16 08:30 Consult to Physician [CONS] Routine Consulting Provider: MARIA ESTHER QUIJANO Reason For Exam: ckd Place consult to:: [facility]. Notified:: as Phone number called:: [phone] Was contact made?: Yes If yes, spoke with:: nathalia Time called:: 08:43 Primary care physician: YSABEL LIU Hospitalization Reason for admission: GI bleed Condition: Stable Hospital course: Patient's assisted 6-year-old male with past medical history of chronic kidney disease, pulmonary embolism but not on anticoagulation, CHF, anemia, peptic ulcer disease who presented to the hospital with complaining of generalized weakness for about a week. Information was obtained from the as patient is severely weak and not provide much information. But as far as the patient in the past week has gradually been declining and yesterday was complaining of abdominal discomfort she initially thought that this was secondary to his reflux and encouraged him to make sure that his tooth is in place before eating. Most that when she came back his fluid was still on thoughts and he was basically very weak and almost least less prompted her to call the ambulance to bring her into the hospital. She also reports that she notes that he stool was dark the day before. But no james blood noted hemoptysis no hematemesis. No bright red blood per rectum. patient was transfused 3 units of PRBC and admitted to the ICU, proceeded to have a endoscopy which found a peptic ulcer disease with no evidence of bleeding. The patient's hemoglobin stabilized his creatinine actually improved over the last year he's been at 3.3- 3.6 this could be likely secondary to Lasix and lisinopril being held. But nonetheless patient does have history of diabetes and his creatinine has been stable for about a year so we'll going to restart his YULY inhibitor and also restart his light Lasix but decreased dose. He did have an elevated blood pressure which improved off of his medications were started he is to have a follow-up with his primary care physician to further regulate his diabetic medication as he states that he takes some unfortunately we do not have the names. He is not on insulin. Also to regulate his blood pressure medications are. He does verbalize understand this. He also is going to follow-up H. pylori rule out with the pathology still pending at this time. Condition is stable he's lost to follow-up with his kidney doctor. Discharge diagnoses * Symptomatic acute blood loss anemia * Upper GI bleed with PUD * Melana * NSTEMI type 2 * Chronic systolic heart failure-EF 30-35% * Acute kidney injury on chronic CKD IV present on admission-likely secondary to vasomotor nephropathy creatinine baseline 3.4 * Hyperosmolar nonketotic hyperglycemia * Uncontrolled diabetes mellitus * Hx of PE- 05/2016 * Hypertension urgency * Leukocytosis likely reactive * Hyperkalemia * History of embolic stroke * Subnephrotic range proteinuria Disposition: DISCHARGED TO HOME OR SELFCARE Time spent for discharge: 35 mins Core Measure Documentation - Palliative Care Palliative Care/ Comfort Measures: Not Applicable - Core Measures Any of the following diagnoses?: none - VTE Discharge Requirements Deep Vein Thrombosis/Pulmonary Embolism Present on Admission: No Exam - Physical Exam Narrative exam: VITAL SIGNS: Reviewed. GENERAL: The patient appeared well nourished and normally developed. Vital signs as documented. HEAD: No signs of head trauma. EYES: Pupils are equal. Extraocular motions intact. EARS: Hearing grossly intact. MOUTH: Oropharynx is normal. NECK: No adenopathy, no JVD. CHEST: Chest with clear breath sounds bilaterally. No wheezes, rales, or rhonchi. CARDIAC: Regular rate and rhythm. S1 and S2, without murmurs, gallops, or rubs. VASCULAR: No Edema. Peripheral pulses normal and equal in all extremities. ABDOMEN: Soft, without detectable tenderness. No sign of distention. No rebound or guarding, and no masses palpated. Bowel Sounds normal. MUSCULOSKELETAL: Good range of motion of all major joints. Extremities without clubbing, cyanosis or edema. NEUROLOGIC EXAM: Awake and oriented x 3. No focal sensory or strength deficits. Speech normal. Follows commands. PSYCHIATRIC: Mood normal. SKIN: Improved skin turgor - Constitutional Vitals: Temp Pulse Resp BP Pulse Ox 98.4 F 104 H 19 185/108 97 11/20/16 12:00 11/20/16 14:00 11/20/16 14:00 11/20/16 14:00 11/20/16 14:00 Plan Activity: advance as tolerated, fall precautions Diet: renal Special Instructions: record daily BP diary, record blood sugar diary, other ( Repeat HEMOGLOBIN AND HEMATOCRIT IN 1 WEEK) Additional Instructions: No ASA for 1 week and untill seen by GI. Pt states he takes po diabetic medication at home. should continue. monitor BG and follow with PCP for adjustment Follow up with: YSABEL LIU MD [Primary Care Provider] - 3-5 Days YESY NARANJO MD [Staff Physician] - 7 Days MARIA ESTHER QUIJANO MD [Staff Physician] - 7 Days Prescriptions: Simvastatin [Zocor TAB] 40 mg PO QHS #30 tablet Furosemide [Lasix TAB] 20 mg PO QDAY #30 tablet Pantoprazole [Protonix TAB] 40 mg PO BID #60 tablet
[2016-11-20 14:59] LABS: Hematocrit 22.3 % (35.5-45.6); Hemoglobin 7.3 gm/dl (11.8-15.2)
[2016-11-20] MEDS ORDERED: ZESTRIL PO SCH (16:00)
[2016-11-20] MEDS ORDERED: ZOCOR PO SCH (22:00)
== END 2016-11-20 17:20 | disposition home or self-care (01) | DRG 377 ==
LOC: ED 07:41 → CC1 10:24
PROVIDERS: ADMIT Internal Medicine; ATTEND Internal Medicine
PROC: 0DB68ZX Excision of Stomach, Via Natural or Artificial Opening Endoscopic, Diagnostic (ICD-10-PCS; 2016-11-18)
PROC: 30233N1 Transfusion of Nonautologous Red Blood Cells into Peripheral Vein, Percutaneous Approach (ICD-10-PCS; principal; 2016-11-19)
DX: K27.4 Chronic or unspecified peptic ulcer, site unspecified, with hemorrhage (principal); N17.0 Acute kidney failure with tubular necrosis; E11.00 Type 2 diabetes mellitus with hyperosmolarity without nonketotic hyperglycemic-hyperosmolar coma (NKHHC); I21.4 Non-ST elevation (NSTEMI) myocardial infarction; D62 Acute posthemorrhagic anemia; I50.22 Chronic systolic (congestive) heart failure; I13.0 Hypertensive heart and chronic kidney disease with heart failure and stage 1 through stage 4 chronic kidney disease, or unspecified chronic kidney disease; N18.4 Chronic kidney disease, stage 4 (severe); I42.9 Cardiomyopathy, unspecified; I24.8 Other forms of acute ischemic heart disease; N18.9 Chronic kidney disease, unspecified; E87.6 Hypokalemia; E11.65 Type 2 diabetes mellitus with hyperglycemia; E11.22 Type 2 diabetes mellitus with diabetic chronic kidney disease; E87.5 Hyperkalemia; I25.10 Atherosclerotic heart disease of native coronary artery without angina pectoris; E78.5 Hyperlipidemia, unspecified; J44.9 Chronic obstructive pulmonary disease, unspecified; I16.0 Hypertensive urgency; Z86.711 Personal history of pulmonary embolism; Z79.82 Long term (current) use of aspirin; Z86.73 Personal history of transient ischemic attack (TIA), and cerebral infarction without residual deficits
CPT/HCPCS: 36415; 36430; 70450; 71010; 80048; 80053; 80061; 81001; 82140; 82271; 82550; 82553; 82962; 83735; 83880; 84443; 84484; 85007; 85014; 85018; 85025; 85027; 85610; 86850; 86900; 86901; 86920; 87086; 88305; 88342; 93005; 93010; 94640; 94770; 96372; 96374; 96375; 99291; C9113; J0360; J1815; J2704; J3486; J7030; J7040; P9016

== ENCOUNTER 2017-12-13 03:09 | Inpatient (IN) | payer BC, MEDICARE ==
[2017-12-13 06:11] LABS: Calcium 8.5 mg/dL (8.4-10.2)
[2017-12-13 06:14] LABS: Mean Corpuscular HGB Conc 30 % (32-34); Mean Corpuscular Volume 71 fl (84-94); Platelet Count 202 K/mm3 (140-440); Red Blood Count 4.24 M/mm3 (3.65-5.03)
[2017-12-13 06:17] LABS: Hemoglobin 8.8 gm/dl (11.8-15.2); Mean Corpuscular Hemoglobin 21 pg (28-32); Red Cell Distribution Width 20.8 % (13.2-15.2)
[2017-12-13] MEDS ORDERED: VANCOMYCIN/NS 1 GM/250 ML 1 GM/250 ML BAG IV ONE (10:00)
--- NOTE | 2017-12-13 10:00 | Emergency Department Report ---
HPI - General Chief Complaint: Extremity Injury, Lower Time Seen by Provider: 12/13/17 09:28 - HPI HPI: 67-year-old -[place] male presents to the emergency department through triage with complaint of a one-week history of progressively worsening bilateral feet and lower extremity swelling with some intermittent pain. He also is concerned as he is started to develop some blistering to the left leg. He feels like her legs are heavy and it is making it difficult for him to ambulate and he has to use a cane. He has a past medical history of CHF within EF less than 40%, diabetes, PFO and chronic kidney disease not on dialysis. His primary care physician is Dr. Thornton and his industrial organizational psychologist is Dr. Rosas. He has not seen them regarding these recent symptoms. No recent travel or sick contacts at home. He has not taken anything for his symptoms prior to presentation. He denies any chest pain, shortness of breath, fever, back pain. ED Past Medical Hx - Past Medical History Previous Medical History?: Yes Hx Hypertension: Yes (CHF per chart; EF <40% ) Hx Heart Attack/AMI: (RV overload with PFO and dilated RA & RV, bradycardic) Hx Congestive Heart Failure: Yes Hx Diabetes: Yes Hx Deep Vein Thrombosis: (?) Hx Liver Disease: No Hx Renal Disease: Yes (Stage 4 with need for dialysis recently; pt denied; bun 120, cr 3.9) Hx Asthma: No Hx COPD: No (per chart; patient denied) Hx HIV: No Additional medical history: renal insufficiency - Surgical History Hx Pacemaker: No Hx Internal Defibrillator: No - Social History Smoking Status: Never Smoker - Medications Home Medications: Home Medications Medication Instructions Recorded Confirmed Last Taken Type Pravastatin Sodium [Pravastatin] 40 mg PO QHS 11/18/16 03/03/17 Unknown History Aspirin [Aspirin BABY CHEW TAB] 81 mg PO QDAY tab.chew 03/06/17 Unknown Rx Insulin Glargine,Hum.rec.anlog 12 units SQ QHS #5 pen 03/06/17 Unknown Rx [Lantus Solostar] NIFEdipine XL [Procardia Xl] 30 mg PO Q12HR #60 tablet 03/06/17 Unknown Rx Pantoprazole [Protonix] 40 mg PO BID #60 tablet 03/06/17 Unknown Rx ED Review of Systems ROS: Stated complaint: LEFT LEG,FOOT SORES Other details as noted in HPI Comment: All other systems reviewed and negative Constitutional: denies: chills, fever Eyes: denies: eye pain, eye discharge, vision change ENT: denies: ear pain, throat pain Respiratory: denies: cough, shortness of breath, wheezing Cardiovascular: edema. denies: chest pain, palpitations Gastrointestinal: denies: abdominal pain, nausea, diarrhea Genitourinary: denies: urgency, dysuria Musculoskeletal: denies: back pain, arthralgia Skin: lesions, change in color Neurological: denies: headache, weakness, paresthesias Physical Exam - Physical Exam Vital Signs: Vital Signs 12/13/17 05:07 Temperature 98.1 F Pulse Rate 76 Respiratory 20 Rate Blood Pressure 127/97 O2 Sat by Pulse 100 Oximetry Physical Exam: GENERAL: The patient is well-developed well-nourished. HENT: Normocephalic. Atraumatic. Patient has moist mucous membranes. EYES: Extraocular motions are intact. Pupils equal reactive to light bilaterally. NECK: Supple. Trachea is midline. CHEST/LUNGS: Slightly coarse breath sounds without chest. No tachypnea or accessory muscle use. There is no respiratory distress noted. HEART/CARDIOVASCULAR: Regular. There is no tachycardia. There is no murmur. ABDOMEN: Abdomen is soft, nontender. Patient has normal bowel sounds. There is no abdominal distention. SKIN: There is 1-2+ pitting edema of the bilateral lower extremity. The patient has a few bulla or blisters seen to the left lower extremity area in this area there is a small amount of erythema concerning for a developing cellulitis. NEURO: The patient is awake, alert, and oriented. The patient is cooperative. The patient has no focal neurologic deficits. The patient has normal speech. MUSCULOSKELETAL: There is no tenderness or deformity. There is no limitation range of motion. There is no evidence of acute injury. ED Course Vital Signs 12/13/17 05:07 Temperature 98.1 F Pulse Rate 76 Respiratory 20 Rate Blood Pressure 127/97 O2 Sat by Pulse 100 Oximetry ED Medical Decision Making - Lab Data Result diagrams: 12/13/17 05:44 12/13/17 05:44 - Radiology Data Radiology results: report reviewed Bilateral lower extremity venous Doppler negative for DVT - Medical Decision Making Patient presents with lower extremity swelling that is causing him some difficulty with ambulation. He has a history of CHF and this may be a CHF exacerbation. Since there was a little bit of blistering and erythema, he was empirically covered with some antibiotics for possible developing cellulitis. There is anemia of chronic kidney disease but not at a level that requires transfusion. CHF is greater than 12,000. Patient was accepted for admission by Dr. Thurman. - Differential Diagnosis CHF, Venous Stasis, DVT, Cellulitis Critical Care Time: No Critical care attestation.: If time is entered above; I have spent that time in minutes in the direct care of this critically ill patient, excluding procedure time. ED Disposition Clinical Impression: CKD (chronic kidney disease) stage 4, GFR 15-29 ml/min, Hypertensive urgency, Edema of both legs CHF (congestive heart failure) Qualifiers: Congestive heart failure type: systolic Congestive heart failure chronicity: chronic Qualified Code(s): I50.22 - Chronic systolic (congestive) heart failure Disposition: OP ADMIT IP TO THIS HOSP Is pt being admited?: Yes Condition: Stable Time of Disposition: 15:46
[2017-12-13] MEDS ORDERED: VANCOMYCIN/0.45 NS 1 GM/250 ML 1 GM/250 ML BAG IV SCH (11:00)
[2017-12-13] MEDS ORDERED: TYLENOL PO PRN (11:22)
[2017-12-13] MEDS ORDERED: D50W (25GM) Syringe IV PRN (11:22)
--- NOTE | 2017-12-13 15:36 | History and Physical Report ---
History of Present Illness Date of examination: 12/13/17 Date of admission: 12/13/17 11:19 Chief complaint: #1 bilateral lower extremity swelling #2 blisters the left lower extremities #3 generalized weakness History of present illness: 67-year-old male patient of Dr. Dr. Nelson for whom I'm covering presented in the emergency room on account of progressive swelling in the lower extremities which had been ongoing for the past 1-2 weeks patient is currently on treatment for hypertension diabetes and also history of congestive heart failure with previous ejection fraction of below 40%. Patient is currently on diuretic which he stated that he has been compliant with, patient has also noticed some increased weight gain over the past week. Patient denied any chest pain and denied any shortness of breath and also denied any orthopnea no fever reported no cough. Patient is currently on treatment for diabetes stated that his blood sugar fluctuates and has not been under control. He takes his blood pressure medication regularly but reports that his blood pressure has also been running high. Patient has also been evaluated for chronic kidney disease and was previously evaluated by Dr. Kennedy [employer] systems administrator, denied any difficulty with urination no blood in the urine and denied any back pain. Patient was evaluated in the emergency room and initial assessment was acute on chronic congestive heart failure and plan is to admit the patient for further evaluation including diuresis as well as adjustment of current medication for optimal blood pressure control and correct any abnormal electrolytes Past History Past Medical History: diabetes, heart failure, hypertension Family history: diabetes, hypertension Medications and Allergies Allergies Allergy/AdvReac Type Severity Reaction Status Date / Time No Known Allergies Allergy Verified 05/25/15 10:29 Home Medications Medication Instructions Recorded Confirmed Last Taken Type Pravastatin Sodium [Pravastatin] 40 mg PO QHS 11/18/16 03/03/17 Unknown History Aspirin [Aspirin BABY CHEW TAB] 81 mg PO QDAY tab.chew 03/06/17 Unknown Rx Insulin Glargine,Hum.rec.anlog 12 units SQ QHS #5 pen 03/06/17 Unknown Rx [Lantus Solostar] NIFEdipine XL [Procardia Xl] 30 mg PO Q12HR #60 tablet 03/06/17 Unknown Rx Pantoprazole [Protonix] 40 mg PO BID #60 tablet 03/06/17 Unknown Rx Active Meds: Active Medications Acetaminophen (Tylenol) 650 mg PO Q6H PRN PRN Reason: Pain, Mild (1-3) Dextrose (D50w (25gm) Syringe) 50 ml IV PRN PRN PRN Reason: Hypoglycemia Heparin Sodium (Porcine) (Heparin) 5,000 unit SUB-Q Q12HR ELISSA Vancomycin HCl (Vancomycin/0.45 Ns 1 Gm/250 Ml) 1 gm in 250 mls @ 167.007 mls/ hr IV ONCE ELISSA Last Admin: 12/13/17 11:11 Dose: 167.007 mls/hr Insulin Human Regular (Novolin R) 0 units SUB-Q ACHS [facility]IS[facility] PRN Reason: Protocol Last Admin: 12/13/17 11:56 Dose: 3 units Review of Systems Constitutional: weight gain, weakness Cardiovascular: edema Integumentary: blisters Endocrine: high blood sugars Hematologic/Lymphatic: easy bruising Exam - Physical Exam Narrative exam: GENERAL: In mild respiratory distress, not pale not jaundiced, no cyanosis HEENT: Normocephalic, mucous membrane is moist no exudate or hemorrhage in the pharynx [Mucous membrane is moist, pharynx is clear, no exudates or hemorrhage. Dentition is normal.] NECK: Engorged neck veins, no thyroid enlargement, no bruit on auscultation of the neck [Neck auscultation showed no carotid bruit.] CHEST/LUNGS: Reduced air exchange bibasally few basilar crackles bilaterally, no wheeze no rhonchi, no dullness to percussion HEART/CARDIOVASCULAR: Tachycardia. Second heart sounds are patient had missed beats ABDOMEN: [Abdomen is soft, nontender. Patient has normal bowel sounds. There is no abdominal distention. Liver and spleen not palpably enlarged.] SKIN: Blister in the left lower extremity, bilateral stasis dermatitis with a few open skin area NEURO: [The patient is awake, alert, and oriented. The patient is cooperative. The patient has no focal neurologic deficits. Cranial nerves 2-12 grossly normal, power is 5/5 in all the extremities tested. The patient has normal speech and gait.] MUSCULOSKELETAL: [There is no tenderness or deformity. There is no limitation range of motion. There is no evidence of acute injury.] EXTREMITIES: +1 bilateral pitting edema up to below the knee bilaterally, stasis dermatitis, weakly palpable peripheral pulses symmetrical. No finger or toe clubbing. - Constitutional Vitals: Temp Pulse Resp BP Pulse Ox 98.1 F 84 16 187/103 100 12/13/17 05:07 12/13/17 13:49 12/13/17 13:49 12/13/17 13:49 12/13/17 13:49 Results - Labs CBC & Chem 7: 12/13/17 05:44 12/13/17 05:44 Labs: Abnormal lab results 12/13/17 12/13/17 12/13/17 Range/Units 05:44 05:44 05:44 Hgb 8.8 L (11.8-15.2) gm/dl Hct 30.0 L (35.5-45.6) % MCV 71 L (84-94) fl MCH 21 L (28-32) pg MCHC 30 L (32-34) % RDW 20.8 H (13.2-15.2) % BUN 50 H (9-20) mg/dL Creatinine 3.1 H (0.8-1.5) mg/dL Glucose 183 H (75-100) mg/dL POC Glucose (70-105) NT-Pro-B Natriuret Pep 59778 H (0-900) pg/mL 12/13/17 Range/Units 11:45 Hgb (11.8-15.2) gm/dl Hct (35.5-45.6) % MCV (84-94) fl MCH (28-32) pg MCHC (32-34) % RDW (13.2-15.2) % BUN (9-20) mg/dL Creatinine (0.8-1.5) mg/dL Glucose (75-100) mg/dL POC Glucose 209 H (70-105) NT-Pro-B Natriuret Pep (0-900) pg/mL Assessment and Plan - Patient Problems (1) Abnormal cardiac enzyme level Onset Date: 05/25/15 Current Visit: No Status: Acute Plan to address problem: Will obtain 2 additional levels, follow troponin level. (2) Acute on chronic renal failure Onset Date: 05/08/16 Current Visit: No Status: Acute Plan to address problem: History of chronic renal failure BUN and creatinine noted to be elevated we'll compare with previous levels during most recent hospitalization. Reconsult nephrology to evaluate (3) Acute on chronic renal failure Current Visit: No Status: Acute Qualifiers: Acute renal failure type: unspecified Chronic kidney disease stage: stage 4 (severe) Qualified Code(s): N17.9 - Acute kidney failure, unspecified; N18.4 - Chronic kidney disease, stage 4 (severe) Plan to address problem: Good urinary outputs, check renal ultrasound, nephrology consult (4) Acute respiratory failure with hypoxemia Current Visit: No Status: Acute Plan to address problem: Continue supplemental oxygenation monitor O2 saturation (5) Acute systolic heart failure Onset Date: 05/10/16 Current Visit: No Status: Acute Plan to address problem: Was started on IV diuretic's monitor urinary output. Watch BUN and creatinine closely
[2017-12-13] MEDS: PROTONIX PO SCH (16:08)
[2017-12-13] MEDS ORDERED: PROTONIX PO ONE (17:00)
[2017-12-13] MEDS ORDERED: PROCARDIA XL PO ONE (17:00)
[2017-12-13] MEDS: LASIX IV SCH (18:40)
[2017-12-13] MEDS ORDERED: APRESOLINE IV PRN (21:13)
[2017-12-13] MEDS: LEVEMIR SUB-Q SCH (22:00)
[2017-12-13] MEDS: PRAVACHOL PO SCH (22:46)
[2017-12-13] MEDS: HEPARIN SUB-Q SCH (22:51)
[2017-12-14] MEDS: LASIX IV SCH ×2 (06:05→18:03)
[2017-12-14 06:34] LABS: Bilirubin,Urine NEG (Negative); Blood,Urine NEG (Negative); Color,Urine Straw (Yellow); Mucus,Urine FEW /HPF; Urobilinogen,Urine < 2.0 mg/dL (<2.0); WBC,Urine < 1.0 /HPF (0.0-6.0)
[2017-12-14 07:13] LABS: Creatinine,Urine 29.3 mg/dL (0.1-20.0)
[2017-12-14 07:33] LABS: Fractional Sodium Excretion 9.3
--- NOTE | 2017-12-14 09:44 | Consultation ---
History of Present Illness - History of Present Illness Thank you for the consultation Source of information: History of presenting illness Patient is a pleasant 67-year-old -[place] male who has known history of stage IV chronic kidney disease for which she has seen by Dr. Kennedy in the past but does nto follow . Patient presented to hospital with complaints of increasing swelling of both lower extremity with fluid blisters in the left leg. He has gained significant amount of weight in the last few weeks. Ejection fraction is around 40% patient health's history of congestive heart failure. Eating habits have been not so good patient has not been careful with his diet in terms of fluid sodium intake. Current creatinine is around 3.1 urinalysis shows 30 mg protein in the urine previous ultrasonogram of the prior admission February 2017 showed a right renal cyst echogenic kidneys. Patient also does have history of long-standing hypertension and diabetes Past medical history significant for: Chronic kidney disease stage IV Hypertension Heart failure Diabetes Proteinuria Chronic edema Current allergies: Reviewed Home medication/present medication: Reviewed Social history: Reviewed from the current chart Family history: Reviewed from the current chart Review of system is positive for; worsening edema both lower extremity with blisters some shortness of breath no difficulty voiding dysuria burning frequency or urgency of urination All other review of systems were negative Physical examination Vitals: Reviewed from this admission Gen.: No acute distress HEENT: Normocephalic/atraumatic skull oral mucosa moist minimal pallor no icterus or uremic order Neck: Supple without any thyromegaly nodular mass or JVD Chest: Few bilateral basilar crackles more evident posteriorly Heart: Regular rate and rhythm S1 and S2 heard no S3-S4 no pericardial rub Abdomen: Soft nontender no guarding rigidity rebound organomegaly no suprapubic masses, no CVA tenderness no renal bruit Back: No CVA tenderness Derm: No petechial rashes dry skin Extremity: Pulses palpable no peripheral cyanosis, 2+ edema bilateral symmetrical Neurological: Alert awake follows commands Psychiatric: No agitation and aggression Labs and x-rays: Were reviewed from this admission Assessment and plan; Severe renal failure; patient's current renal function is stable compared to February 2017 when it was in the range of 3.9, patient likely has stage IV chronic kidney disease, very non complaint , does not follow with Dr Rosas, high risk for worsening of renal function to ESRD Renal ultrasonogram obtained February 2017 shows echogenic kidneys with right renal cyst patient will need a follow-up on this Respiratory failure with hypoxemia which can likely worsen renal function to monitor and follow Abnormal cardiac enzyme: Patient is to rule out for any possibility of significant coronary artery disease Acute systolic heart failure currently being treated, proBNP is significantly elevated at 12,810 Moderately severe anemia hemoglobin currently 8.8 requiring further workup Hypertension: Accelerated upon admission Bilateral lower extremity swelling with fluid blisters will check for proteinuria as well Urinalysis shows evidence of 30 mg of protein per DL Fractional excretion of sodium 9.3 Compliance: Very poor in terms of diet and lifestyle changes that needs to be made Had a detailed discussion with patient about the plan of care from renal standpoint. All questions were answered labs and pertinent imaging findings were explained to the patient and simple Brazilian. Advised patient to make an appointment for follow-up within a week of the discharge, for proper renal care We'll continue to follow and make recommendation from renal standpoint Thank you for the consultation. Past History Past Medical History: diabetes, heart failure, hypertension Family history: diabetes, hypertension Medications and Allergies Allergies Allergy/AdvReac Type Severity Reaction Status Date / Time No Known Allergies Allergy Verified 05/25/15 10:29 Home Medications Medication Instructions Recorded Confirmed Last Taken Type Pravastatin Sodium [Pravastatin] 40 mg PO QHS 11/18/16 12/14/17 1 Day Ago History ~12/13/17 Aspirin [Aspirin BABY CHEW TAB] 81 mg PO QDAY tab.chew 03/06/17 12/14/17 1 Day Ago Rx ~12/13/17 Insulin Glargine,Hum.rec.anlog 12 units SQ QHS #5 pen 03/06/17 12/14/17 1 Day Ago Rx [Lantus Solostar] ~12/13/17 NIFEdipine XL [Procardia Xl] 30 mg PO Q12HR #60 tablet 03/06/17 12/14/17 1 Day Ago Rx ~12/13/17 Pantoprazole [Protonix] 40 mg PO BID #60 tablet 03/06/17 12/14/17 1 Day Ago Rx ~12/13/17 Active Meds: Active Medications Acetaminophen (Tylenol) 650 mg PO Q6H PRN PRN Reason: Pain, Mild (1-3) Aspirin (Baby Aspirin) 81 mg PO QDAY ELISSA Dextrose (D50w (25gm) Syringe) 50 ml IV PRN PRN PRN Reason: Hypoglycemia Furosemide (Lasix) 40 mg IV 0600,1800 [facility] Last Admin: 12/14/17 06:05 Dose: 40 mg Heparin Sodium (Porcine) (Heparin) 5,000 unit SUB-Q Q12HR [facility] Last Admin: 12/13/17 22:51 Dose: 5,000 unit Hydralazine HCl (Apresoline) 5 mg IV Q6H PRN PRN Reason: Hypertension Last Admin: 12/13/17 22:46 Dose: 5 mg Influenza Virus Vaccine Quadrival (Fluarix Quad [id number](36 Mos+) 0.5 ml IM .ONCE ONE Stop: 12/14/17 12:01 Insulin Detemir (Levemir) 12 units SUB-Q QHS [facility] Last Admin: 12/13/17 22:00 Dose: 12 units Insulin Human Regular (Novolin R) 0 units SUB-Q ACHS [facility] PRN Reason: Protocol Last Admin: 12/13/17 22:00 Dose: 2 units Nifedipine (Procardia Xl) 30 mg PO Q12HR [facility] Pantoprazole Sodium (Protonix) 40 mg PO BID [facility] Last Admin: 12/13/17 16:08 Dose: 40 mg Pneumococcal Polyvalent Vaccine (Pneumovax 23) 0.5 ml IM .ONCE ONE Stop: 12/14/17 12:01 Pravastatin Sodium (Pravachol) 40 mg PO QHS [facility] Last Admin: 12/13/17 22:46 Dose: 40 mg Exam - Vital Signs Vital signs: Vital Signs Temp Pulse Resp BP Pulse Ox 98.1 F 76 20 127/97 100 12/13/17 05:07 12/13/17 05:07 12/13/17 05:07 12/13/17 05:07 12/13/17 05:07 Results - Lab Results 12/13/17 05:44 12/13/17 05:44 Most recent lab results Calcium 8.5 mg/dL (8.4-10.2) 12/13/17 05:44 Urine Creatinine 29.3 mg/dL (0.1-20.0) H 12/14/17 06:15 Urine Sodium 122 mmol/L 12/14/17 06:15
[2017-12-14] MEDS ORDERED: PROCARDIA XL PO SCH (10:00)
[2017-12-14] MEDS: HEPARIN SUB-Q SCH ×2 (11:23→23:09)
[2017-12-14] MEDS: BABY ASPIRIN PO SCH (11:23)
[2017-12-14] MEDS: PROTONIX PO SCH ×2 (11:23→23:10)
[2017-12-14] MEDS ORDERED: PNEUMOVAX 23 IM ONE (12:00)
[2017-12-14] MEDS ORDERED: Fluarix Quad 2017-2018(36 MOS+ IM ONE (12:00)
--- NOTE | 2017-12-14 12:18 | Consultation ---
History of Present Illness Consult date: 12/14/17 Requesting physician: MILAGRO BLAIR Consult reason: congestive heart failure History of present illness: The patient has a history of nonischemic cardiomyopathy with an ejection fraction of 30-35% on echocardiogram of February 2017. RVSP at that time was 72 mmHg. He presented this time with a few days history of bilateral leg swelling. He denies shortness of breath, orthopnea or chest pain. Past History Past Medical History: acute OH (IWMI in April 2016 treated conservatively), diabetes, heart failure, hypertension, renal failure, stroke, other ( nonischemic cardiomyopathy with EF 30-35% in February 2017. Severe pulmonary hypertension with RVSP of 72 mmHg, PUD, PE) Past Surgical History: No surgical history Family history: diabetes, hypertension Medications and Allergies Allergies Allergy/AdvReac Type Severity Reaction Status Date / Time No Known Allergies Allergy Verified 05/25/15 10:29 Home Medications Medication Instructions Recorded Confirmed Last Taken Type Pravastatin Sodium [Pravastatin] 40 mg PO QHS 11/18/16 12/14/17 1 Day Ago History ~12/13/17 Aspirin [Aspirin BABY CHEW TAB] 81 mg PO QDAY tab.chew 03/06/17 12/14/17 1 Day Ago Rx ~12/13/17 Insulin Glargine,Hum.rec.anlog 12 units SQ QHS #5 pen 03/06/17 12/14/17 1 Day Ago Rx [Lantus Solostar] ~12/13/17 NIFEdipine XL [Procardia Xl] 30 mg PO Q12HR #60 tablet 03/06/17 12/14/17 1 Day Ago Rx ~12/13/17 Pantoprazole [Protonix] 40 mg PO BID #60 tablet 03/06/17 12/14/17 1 Day Ago Rx ~12/13/17 Active Meds: Active Medications Acetaminophen (Tylenol) 650 mg PO Q6H PRN PRN Reason: Pain, Mild (1-3) Aspirin (Baby Aspirin) 81 mg PO QDAY [facility] Last Admin: 12/14/17 11:23 Dose: 81 mg Dextrose (D50w (25gm) Syringe) 50 ml IV PRN PRN PRN Reason: Hypoglycemia Furosemide (Lasix) 40 mg IV 0600,1800 [facility] Last Admin: 12/14/17 06:05 Dose: 40 mg Heparin Sodium (Porcine) (Heparin) 5,000 unit SUB-Q Q12HR [facility] Last Admin: 12/14/17 11:23 Dose: 5,000 unit Hydralazine HCl (Apresoline) 5 mg IV Q6H PRN PRN Reason: Hypertension Last Admin: 12/13/17 22:46 Dose: 5 mg Insulin Detemir (Levemir) 12 units SUB-Q QHS [facility] Last Admin: 12/13/17 22:00 Dose: 12 units Insulin Human Regular (Novolin R) 0 units SUB-Q ACHS [facility] PRN Reason: Protocol Last Admin: 12/13/17 22:00 Dose: 2 units Nifedipine (Procardia Xl) 30 mg PO Q12HR [facility] Last Admin: 12/14/17 11:23 Dose: 30 mg Pantoprazole Sodium (Protonix) 40 mg PO BID [facility] Last Admin: 12/14/17 11:23 Dose: 40 mg Pravastatin Sodium (Pravachol) 40 mg PO QHS [facility] Last Admin: 12/13/17 22:46 Dose: 40 mg Review of Systems Constitutional: no fever, no chills Ears, nose, mouth and throat: no ear pain, no ear discharge, no sore throat Cardiovascular: edema, no chest pain, no orthopnea, no palpitations, no shortness of breath Respiratory: no cough, no hemoptysis, no shortness of breath Gastrointestinal: no abdominal pain, no nausea, no vomiting, no diarrhea, no constipation Genitourinary Male: no dysuria, no urinary frequency Rectal: no pain, no bleeding Musculoskeletal: no neck stiffness, no neck pain, no myalgias Integumentary: no rash, no pruritis Neurological: no weakness, no parathesias, no numbness, no tingling, no headaches Endocrine: no cold intolerance, no heat intolerance Hematologic/Lymphatic: no easy bruising, no easy bleeding Allergic/Immunologic: no urticaria, no wheezing Physical Examination Vital Signs Last Vital Signs Temp 98.4 F 12/14/17 04:41 Pulse 83 12/14/17 08:53 Resp 20 12/14/17 08:53 BP 149/82 12/14/17 08:53 Pulse Ox 98 12/14/17 08:53 General appearance: no acute distress HEENT: Positive: EOMI, Normocephaly, Mucus Membranes Moist Neck: Positive: neck supple, trachea midline Cardiac: Positive: Reg Rate and Rhythm, S1/S2, Systolic Murmur (2/6) Lungs: Positive: clear to auscultation Neuro: Positive: Grossly Intact Abdomen: Positive: Soft, Active Bowel Sounds Skin: Positive: Clear. Negative: Rash Musculoskeletal: Normal Range of Motion Extremities: Absent: edema Results 12/13/17 05:44 12/13/17 05:44 Comprehensive Metabolic Panel 12/13/17 Range/Units 05:44 Sodium 139 (137-145) mmol/L Creatinine 3.1 H (0.8-1.5) mg/dL - Imaging and Cardiology EKG: image reviewed EKG interpretations - Telemetry EKG Rhythm: Sinus Rhythm - EKG Sinus rhythms and dysrhythmias: sinus rhythm Repolarization changes or abnormalities: ST or T wave suggestive of ischemia Myocardial infarction: inferior OH (old age inde Assessment and Plan A significant portion of his leg edema is probably related to his kidney disease. Edema has currently improved on diuretics. I will optimize his antihypertensive regimen. - Patient Problems (1) Acute systolic heart failure Current Visit: Yes Status: Acute (2) Nonischemic cardiomyopathy Current Visit: Yes Status: Chronic (3) CKD (chronic kidney disease) Current Visit: Yes Status: Chronic Qualifiers: Chronic kidney disease stage: stage 4 (severe) Qualified Code(s): N18.4 - Chronic kidney disease, stage 4 (severe) (4) Hypertension Current Visit: Yes Status: Chronic Qualifiers: Hypertension type: essential hypertension Qualified Code(s): I10 - Essential (primary) hypertension (5) H/O acute myocardial infarction Current Visit: Yes Status: Chronic
--- NOTE | 2017-12-14 15:16 | XRay Report ---
AP CHEST: HISTORY: Heart failure Mild cardiomegaly and mild venous congestion are unchanged since 02/22/17. The lungs are generally clear. No evidence for pneumonia, CHF or pneumothorax. IMPRESSION: Mild cardiomegaly and pulmonary venous congestion.
[2017-12-14] MEDS: APRESOLINE PO SCH ×2 (16:02→23:09)
--- NOTE | 2017-12-14 20:01 | Progress Note ---
Assessment and Plan (1) Acute on chronic systolic heart failure Onset Date: 05/10/16 Current Visit: No Status: Acute Plan to address problem: IV diuretic's monitor urinary output. Watch BUN and creatinine closely. Strick Is and os. daily weight Had acute AR (AR in April 2016 treated conservatively), heart failure, hypertension, renal failure, stroke, other (nonischemic cardiomyopathy with EF 30-35% in February 2017. (2) Abnormal cardiac enzyme level Onset Date: 05/25/15 Current Visit: No Status: Acute Plan to address problem: No chest pain Follow troponin level. (3) Acute on chronic renal failure Onset Date: 05/08/16 Current Visit: No Status: Acute Plan to address problem: History of chronic renal failure BUN and creatinine noted to be elevated we'll compare with previous levels during most recent hospitalization. Reconsult nephrology to evaluate. Good urinary outputs, check renal ultrasound, nephrology consult (4) Acute respiratory failure with hypoxemia Current Visit: No Status: Acute Plan to address problem: Continue supplemental oxygenation monitor O2 saturation (5) Severe Pulm. Hypertesnion With RVSP of 72 mmHg, PUD, PE) Oxygen, dieuretick Consider Sildernofil (6) Diabetes Mellitus SSI, Consistent CHO diet, A1c Subjective Date of service: 12/14/17 Principal diagnosis: Acute on chronic systolic heart failure, severe Pulm HTN Interval history: Pt seen and examined. Still having shortness of breath. Swelling in the leg getting better. Reviewed his laboratory and radiological data Objective - Constitutional Vitals: Vital Signs - 12hr 12/14/17 12/14/17 12/14/17 08:27 08:53 15:08 Temperature 98.1 F Pulse Rate 83 77 Respiratory 20 20 Rate Blood Pressure 149/82 144/82 O2 Sat by Pulse 96 98 98 Oximetry 12/14/17 15:17 Temperature 98.1 F Pulse Rate Respiratory 20 Rate Blood Pressure O2 Sat by Pulse Oximetry General appearance: Present: no acute distress, well-nourished - EENT Eyes: PERRL, EOM intact - Neck Neck: supple, normal ROM - Respiratory Respiratory effort: normal Respiratory: bilateral: diminished - Cardiovascular Rhythm: regular Heart Sounds: Present: S1 & S2. Absent: gallop, rub Extremities: Full ROM Extremity abnormal: edema, tenderness - Gastrointestinal General gastrointestinal: Present: soft, non-tender, non-distended, normal bowel sounds - Integumentary Integumentary: clear, warm, dry - Musculoskeletal Musculoskeletal: 1, strength equal bilaterally - Neurologic Neurologic: moves all extremities - Psychiatric Psychiatric: memory intact, appropriate mood/affect, intact judgment & insight - Labs CBC & Chem 7: 12/13/17 05:44 12/13/17 05:44 Labs: Abnormal lab results 12/13/17 12/13/17 12/14/17 Range/Units 05:44 21:52 06:15 Creatinine 3.1 H (0.8-1.5) mg/dL POC Glucose 158 H (70-105) Urine Creatinine 29.3 H (0.1-20.0) mg/dL 12/14/17 12/14/17 Range/Units 11:54 15:18 Creatinine (0.8-1.5) mg/dL POC Glucose 111 H 226 H (70-105) Urine Creatinine (0.1-20.0) mg/dL
[2017-12-14] MEDS: COREG PO SCH (23:10)
[2017-12-14] MEDS: PRAVACHOL PO SCH (23:10)
[2017-12-14] MEDS: LEVEMIR SUB-Q SCH (23:15)
[2017-12-15] MEDS: APRESOLINE PO SCH ×3 (06:15→22:57)
[2017-12-15] MEDS: LASIX IV SCH ×2 (06:15→18:28)
[2017-12-15 07:31] LABS: Albumin 3.1 g/dL (3.9-5); Basophils % (Auto) 0.5 % (0.0-1.8); Calcium 8.1 mg/dL (8.4-10.2); Eosinophils # (Auto) 0.1 K/mm3 (0.0-0.4); Eosinophils % (Auto) 1.4 % (0.0-4.3); Hematocrit 25.3 % (35.5-45.6); Hemoglobin 7.8 gm/dl (11.8-15.2); INR 1.15 (0.87-1.13); Lymphocytes # (Auto) 0.5 K/mm3 (1.2-5.4); Mean Corpuscular HGB Conc 31 % (32-34); Monocytes # (Auto) 0.7 K/mm3 (0.0-0.8); Monocytes % (Auto) 14.3 % (0.0-7.3); Platelet Count 204 K/mm3 (140-440); Red Blood Count 3.71 M/mm3 (3.65-5.03)
[2017-12-15 07:43] LABS: Mean Corpuscular Hemoglobin 21 pg (28-32); Mean Corpuscular Volume 68 fl (84-94); Red Cell Distribution Width 20.7 % (13.2-15.2)
--- NOTE | 2017-12-15 09:15 | Progress Note ---
Assessment and Plan (1) Acute on chronic systolic heart failure Onset Date: 05/10/16 Current Visit: No Status: Acute Plan to address problem: continue with IV diuretic's monitor urinary output. Watch BUN and creatinine closely. Strick Is and os. daily weight Had acute MN (MN in April 2016 treated conservatively), heart failure, hypertension, renal failure, stroke, other (nonischemic cardiomyopathy with EF 30-35% in February 2017. (2) Acute on chronic renal failure Onset Date: 05/08/16 Current Visit: No Status: Acute Plan to address problem: History of chronic renal failure BUN and creatinine noted to be elevated we'll compare with previous levels during most recent hospitalization. Reconsult nephrology to evaluate. Good urinary outputs, check renal ultrasound, nephrology consult (3) Acute respiratory failure with hypoxemia Current Visit: No Status: Acute Plan to address problem: Continue supplemental oxygenation monitor O2 saturation (4) Severe Pulm. Hypertesnion With RVSP of 72 mmHg, PUD, PE) Oxygen, dieuretick Consider Sildernofil (5) Diabetes Mellitus SSI, Consistent CHO diet, A1c Subjective Date of service: 12/15/17 Principal diagnosis: Acute on chronic systolic heart failure, severe Pulm HTN Interval history: Pt seen and examined. Shortness of breath improving. Swelling in the leg getting better. Reviewed his laboratory and radiological data Objective - Constitutional Vitals: Vital Signs - 12hr 12/14/17 12/14/17 12/15/17 23:09 23:10 00:19 Temperature 98.9 F Pulse Rate 76 76 75 Respiratory 19 Rate Blood Pressure 156/86 156/86 136/69 Blood Pressure [Left] O2 Sat by Pulse 98 Oximetry 12/15/17 12/15/17 12/15/17 05:05 06:15 08:37 Temperature 98.7 F 97.8 F Pulse Rate 79 70 67 Respiratory 17 20 Rate Blood Pressure 135/80 135/80 Blood Pressure 129/78 [Left] O2 Sat by Pulse 99 98 Oximetry 12/15/17 12/15/17 09:00 09:07 Temperature Pulse Rate 67 Respiratory Rate Blood Pressure Blood Pressure [Left] O2 Sat by Pulse 100 Oximetry General appearance: Present: no acute distress, well-nourished - EENT Eyes: PERRL, EOM intact - Neck Neck: supple, normal ROM - Respiratory Respiratory effort: normal Respiratory: bilateral: CTA - Cardiovascular Rhythm: regular Heart Sounds: Present: S1 & S2. Absent: gallop, rub Extremities: pulses intact, No edema, normal color, Full ROM - Gastrointestinal General gastrointestinal: Present: soft, non-tender, non-distended, normal bowel sounds - Genitourinary Male genitourinary: normal - Integumentary Integumentary: clear, warm, dry - Musculoskeletal Musculoskeletal: 1, strength equal bilaterally - Neurologic Neurologic: moves all extremities - Psychiatric Psychiatric: memory intact, appropriate mood/affect, intact judgment & insight - Labs CBC & Chem 7: 12/15/17 04:00 12/15/17 04:00 Labs: Abnormal lab results 12/14/17 12/14/17 12/15/17 Range/Units 11:54 15:18 04:00 Hgb 7.8 L (11.8-15.2) gm/dl Hct 25.3 L (35.5-45.6) % MCV 68 L (84-94) fl MCH 21 L (28-32) pg MCHC 31 L (32-34) % RDW 20.7 H (13.2-15.2) % Lymph % (Auto) 11.0 L (13.4-35.0) % [place] % (Auto) 14.3 H (0.0-7.3) % Lymph # 0.5 L (1.2-5.4) K/mm3 Seg Neutrophils % 72.8 H (40.0-70.0) % PT (12.2-14.9) Sec. INR (0.87-1.13) Chloride (98-107) mmol/L BUN (9-20) mg/dL Creatinine (0.8-1.5) mg/dL POC Glucose 111 H 226 H (70-105) Calcium (8.4-10.2) mg/dL Total Protein (6.3-8.2) g/dL Albumin (3.9-5) g/dL 12/15/17 12/15/17 Range/Units 04:00 04:00 Hgb (11.8-15.2) gm/dl Hct (35.5-45.6) % MCV (84-94) fl MCH (28-32) pg MCHC (32-34) % RDW (13.2-15.2) % Lymph % (Auto) (13.4-35.0) % [place] % (Auto) (0.0-7.3) % Lymph # (1.2-5.4) K/mm3 Seg Neutrophils % (40.0-70.0) % PT 15.3 H (12.2-14.9) Sec. INR 1.15 H (0.87-1.13) Chloride 96.6 L (98-107) mmol/L BUN 44 H (9-20) mg/dL Creatinine 3.1 H (0.8-1.5) mg/dL POC Glucose (70-105) Calcium 8.1 L (8.4-10.2) mg/dL Total Protein 6.0 L (6.3-8.2) g/dL Albumin 3.1 L (3.9-5) g/dL
[2017-12-15] MEDS: BABY ASPIRIN PO SCH (11:44)
[2017-12-15] MEDS: PROTONIX PO SCH ×2 (11:45→22:54)
[2017-12-15] MEDS: COREG PO SCH ×2 (11:45→22:55)
[2017-12-15] MEDS: HEPARIN SUB-Q SCH ×2 (11:47→22:54)
--- NOTE | 2017-12-15 12:16 | Progress Note ---
Assessment and Plan Currently stable cardiac status. Pt may discharge home from cardiology standpoint. At discharge, recommend conversion of IV lasix to PO lasix 40mg daily. Recommend follow up in our office with Dr. Palmer within 3-5 days of hospital discharge ([phone]). The patient has been seen in conjunction with Dr. Palmer who agrees with the assessment and plan of care. - Patient Problems (1) Acute systolic heart failure Current Visit: Yes Status: Acute (2) Nonischemic cardiomyopathy Current Visit: Yes Status: Chronic (3) CKD (chronic kidney disease) Current Visit: Yes Status: Chronic Qualifiers: Chronic kidney disease stage: stage 4 (severe) Qualified Code(s): N18.4 - Chronic kidney disease, stage 4 (severe) (4) Hypertension Current Visit: Yes Status: Chronic Qualifiers: Hypertension type: essential hypertension Qualified Code(s): I10 - Essential (primary) hypertension (5) H/O acute myocardial infarction Current Visit: Yes Status: Chronic Subjective Date of service: 12/15/17 Principal diagnosis: Acute on chronic systolic heart failure, severe Pulm HTN Interval history: pt resting comfortably in bed. no current complaints. states he is ready to discharge home. Objective Last Vital Signs Temp 97.8 F 12/15/17 08:37 Pulse 83 12/15/17 11:45 Resp 20 12/15/17 08:37 BP 129/78 12/15/17 08:37 Pulse Ox 100 12/15/17 09:07 - Physical Examination General: No Apparent Distress HEENT: Positive: EOMI, Normocephaly, Mucus Membranes Moist Neck: Positive: neck supple, trachea midline Cardiac: Positive: Reg Rate and Rhythm, S1/S2 Lungs: Positive: clear to auscultation Neuro: Positive: Grossly Intact Abdomen: Positive: Soft, Active Bowel Sounds Skin: Positive: Clear, Other (BLE dryness and healing blisters ). Negative: Rash Musculoskeletal: Normal Range of Motion Extremities: Absent: edema - Labs and Meds Cardiac Enzymes 12/15/17 Range/Units 04:00 AST 17 (5-40) units/L Coagulation 12/15/17 Range/Units 04:00 PT 15.3 H (12.2-14.9) Sec. INR 1.15 H (0.87-1.13) CBC 02/27/18 Range/Units 04:00 WBC 4.9 (4.5-11.0) K/mm3 RBC 3.71 (3.65-5.03) M/mm3 Hgb 7.8 L (11.8-15.2) gm/dl Hct 25.3 L (35.5-45.6) % Plt Count 204 (140-440) K/mm3 Lymph # 0.5 L (1.2-5.4) K/mm3 [place] # 0.7 (0.0-0.8) K/mm3 Eos # 0.1 (0.0-0.4) K/mm3 Baso # 0.0 (0.0-0.1) K/mm3 Comprehensive Metabolic Panel 12/15/17 Range/Units 04:00 Sodium 137 (137-145) mmol/L Potassium 4.5 (3.6-5.0) mmol/L Chloride 96.6 L (98-107) mmol/L Carbon Dioxide 25 (22-30) mmol/L BUN 44 H (9-20) mg/dL Creatinine 3.1 H (0.8-1.5) mg/dL Glucose 91 (75-100) mg/dL Calcium 8.1 L (8.4-10.2) mg/dL AST 17 (5-40) units/L ALT 12 (7-56) units/L Alkaline Phosphatase 113 (35-129) units/L Total Protein 6.0 L (6.3-8.2) g/dL Albumin 3.1 L (3.9-5) g/dL - Imaging and Cardiology EKG: image reviewed - Telemetry EKG Rhythm: Sinus Rhythm - EKG Sinus rhythms and dysrhythmias: sinus rhythm Repolarization changes or abnormalities: ST or T wave suggestive of ischemia Myocardial infarction: inferior [place] (old age inde
--- NOTE | 2017-12-15 21:51 | Progress Note ---
Subjective Principal diagnosis: Acute on chronic systolic heart failure, severe Pulm HTN Interval history: Patient was seen today for follow-up, on many renal related issues, around 9:30 5 in the morning He is currently feeling much better shortness of breath improving status post cardiology evaluation Better aware about renal related issues Interdisciplinary notes were reviewed Vitals labs intake and output medications were reviewed from today Allergies: Reviewed Social history: Reviewed Family history: Reviewed Physical examination HEENT: Oral mucosa moist no pharyngeal erythema Neck: Supple no JVD Chest: Clear to auscultation no crackles rales or wheezes Heart: Regular rate and rhythm S1-S2 heard no S3-S4 Abdomen: Soft nontender no renal bruit no CVA tenderness no suprapubic fullness Extremity: Mild edema dry skin no peripheral cyanosis pulses palpable Neurological: Alert awake Musculoskeletal: No joint effusion noted Assessment and plan Stage IV chronic kidney disease in a patient who is very noncompliant and does not follow up properly, counseling and education was done high risk for progression to end-stage renal disease clarified with patient he is willing to make an appointment upon discharge Anemia and chronic kidney disease will give erythropoietin current hemoglobin is around 8.8/and currently at 7.8 patient may require packed red blood cell transfusion Nonischemic cardiomyopathy/history of acute myocardial infarction being followed by cardiology Severe pulmonary hypertension Hypertension and chronic kidney disease Chronic noncompliance/proteinuria 30 mg per DL Adequately counseled and educated to make an appointment for follow-up in the office Renal prognosis guarded to poor Diabetes as tolerated to keep creatinine of 3.6 Labs were discussed with patient explained and simple [place] does have good understanding off renal related issues, Will continue to follow and make recommendation from renal standpoint Objective - Vital Signs Vital signs: Vital Signs - 12hr 12/15/17 12/15/17 12/15/17 11:09 11:45 16:30 Temperature 97.9 F 97.8 F Pulse Rate 67 83 63 Respiratory 20 20 Rate Blood Pressure 142/78 Blood Pressure 143/77 [Left] O2 Sat by Pulse 100 100 Oximetry 12/15/17 12/15/17 18:40 20:41 Temperature 98.2 F Pulse Rate 67 68 Respiratory 18 Rate Blood Pressure 154/84 Blood Pressure [Left] O2 Sat by Pulse 100 Oximetry - Lab 12/15/17 04:00 12/15/17 04:00 Most recent lab results Calcium 8.1 mg/dL (8.4-10.2) L 12/15/17 04:00 Phosphorus 3.70 mg/dL (2.5-4.5) 12/15/17 04:00 Magnesium 1.80 mg/dL (1.7-2.3) 12/15/17 04:00 Urine Creatinine 29.3 mg/dL (0.1-20.0) H 12/14/17 06:15 Urine Sodium 122 mmol/L 12/14/17 06:15
[2017-12-15] MEDS: PRAVACHOL PO SCH (22:54)
[2017-12-15] MEDS: LEVEMIR SUB-Q SCH (22:57)
[2017-12-16 06:45] LABS: Hemoglobin 7.9 gm/dl (11.8-15.2); Mean Corpuscular HGB Conc 31 % (32-34); Platelet Count 219 K/mm3 (140-440); Red Blood Count 3.77 M/mm3 (3.65-5.03)
[2017-12-16 06:52] LABS: Mean Corpuscular Hemoglobin 21 pg (28-32); Mean Corpuscular Volume 69 fl (84-94); Red Cell Distribution Width 20.8 % (13.2-15.2)
[2017-12-16] MEDS: APRESOLINE PO SCH ×2 (06:55→14:17)
[2017-12-16] MEDS: LASIX IV SCH (06:57)
[2017-12-16 07:03] LABS: Albumin 2.8 g/dL (3.9-5); Calcium 8.2 mg/dL (8.4-10.2)
--- NOTE | 2017-12-16 08:46 | Progress Note ---
Subjective Date of service: 12/16/17 Principal diagnosis: Acute on chronic systolic heart failure, severe Pulm HTN Objective - Constitutional Vitals: Vital Signs - 12hr 12/15/17 12/15/17 12/15/17 22:00 22:55 22:57 Temperature Pulse Rate 65 68 Respiratory Rate Blood Pressure 155/84 155/84 O2 Sat by Pulse 100 Oximetry 12/16/17 12/16/17 12/16/17 00:10 04:41 06:55 Temperature 98.3 F 97.8 F Pulse Rate 67 64 64 Respiratory 18 20 Rate Blood Pressure 136/68 143/76 143/76 O2 Sat by Pulse 99 100 Oximetry - Labs CBC & Chem 7: 12/16/17 06:17 12/16/17 06:17 Labs: Abnormal lab results 12/15/17 12/15/17 12/15/17 Range/Units 11:16 16:10 22:00 WBC (4.5-11.0) K/mm3 Hgb (11.8-15.2) gm/dl Hct (35.5-45.6) % MCV (84-94) fl MCH (28-32) pg MCHC (32-34) % RDW (13.2-15.2) % Sodium (137-145) mmol/L Chloride (98-107) mmol/L BUN (9-20) mg/dL Creatinine (0.8-1.5) mg/dL POC Glucose 185 H 178 H 144 H (70-105) Calcium (8.4-10.2) mg/dL Total Protein (6.3-8.2) g/dL Albumin (3.9-5) g/dL 12/16/17 12/16/17 Range/Units 06:17 06:17 WBC 4.2 L (4.5-11.0) K/mm3 Hgb 7.9 L (11.8-15.2) gm/dl Hct 26.0 L (35.5-45.6) % MCV 69 L (84-94) fl MCH 21 L (28-32) pg MCHC 31 L (32-34) % RDW 20.8 H (13.2-15.2) % Sodium 136 L (137-145) mmol/L Chloride 94.4 L (98-107) mmol/L BUN 48 H (9-20) mg/dL Creatinine 3.7 H (0.8-1.5) mg/dL POC Glucose (70-105) Calcium 8.2 L (8.4-10.2) mg/dL Total Protein 6.0 L (6.3-8.2) g/dL Albumin 2.8 L (3.9-5) g/dL
--- NOTE | 2017-12-16 09:17 | Progress Note ---
Subjective Principal diagnosis: Acute on chronic systolic heart failure, severe Pulm HTN Interval history: Patient was seen today for follow-up, on many renal related issues, around 9:30 5 in the morning Creatinine is elevated today at 3.7 Vitals labs intake and output medications were reviewed from today Allergies: Reviewed Social history: Reviewed Family history: Reviewed Physical examination HEENT: Oral mucosa moist no pharyngeal erythema Neck: Supple no JVD Chest: Clear to auscultation no crackles rales or wheezes Heart: Regular rate and rhythm S1-S2 heard no S3-S4 Abdomen: Soft nontender no renal bruit no CVA tenderness no suprapubic fullness Extremity: Mild edema dry skin no peripheral cyanosis pulses palpable Neurological: Alert awake Musculoskeletal: No joint effusion noted Assessment and plan Chronic kidney disease likely stage IV, continue to monitor renal function while we are diuresing the patient to keep creatinine under 3.7 currently on IV Lasix, would like to hold Lasix today Hyponatremia mild: Multifactorial Malnutrition present upon admission albumin 3.1 currently 2.8 High risk for progression to end-stage renal disease clarified with patient to make an appointment upon discharge for follow-up with Dr. Kennedy Severe pulmonary hypertension/would not diurese based on peripheral edema probably Hypertension and chronic kidney disease Chronic noncompliance/proteinuria 30 mg per DL Requires further workup for anemia/will order workup today Adequately counseled and educated to make an appointment for follow-up in the office Renal prognosis guarded to poor Labs were discussed with patient explained and simple [place] does have good understanding off renal related issues, Will continue to follow and make recommendation from renal standpoint Objective - Vital Signs Vital signs: Vital Signs - 12hr 12/15/17 12/15/17 12/15/17 22:00 22:55 22:57 Temperature Pulse Rate 65 68 Respiratory Rate Blood Pressure 155/84 155/84 O2 Sat by Pulse 100 Oximetry 12/16/17 12/16/17 12/16/17 00:10 04:41 06:55 Temperature 98.3 F 97.8 F Pulse Rate 67 64 64 Respiratory 18 20 Rate Blood Pressure 136/68 143/76 143/76 O2 Sat by Pulse 99 100 Oximetry 12/16/17 07:13 Temperature 98.8 F Pulse Rate 64 Respiratory 16 Rate Blood Pressure 150/78 O2 Sat by Pulse 100 Oximetry - Lab 12/16/17 06:17 12/16/17 06:17 Most recent lab results Calcium 8.2 mg/dL (8.4-10.2) L 12/16/17 06:17 Phosphorus 3.70 mg/dL (2.5-4.5) 12/15/17 04:00 Magnesium 1.80 mg/dL (1.7-2.3) 12/15/17 04:00 Urine Creatinine 29.3 mg/dL (0.1-20.0) H 12/14/17 06:15 Urine Sodium 122 mmol/L 12/14/17 06:15
[2017-12-16 09:37] LABS: Creatinine,Urine 55.2 mg/dL (0.1-20.0)
[2017-12-16 10:04] LABS: Band Neutrophils # (Manual) 0.1 K/mm3; Basophils % (Manual) 0 % (0.0-1.8); Total Cells Counted 100
[2017-12-16 10:06] LABS: Anisocytosis 1+; Hypochromasia 2+; Poikilocytosis 1+
[2017-12-16] MEDS: BABY ASPIRIN PO SCH (11:03)
[2017-12-16] MEDS: PROTONIX PO SCH (11:04)
[2017-12-16] MEDS: HEPARIN SUB-Q SCH (11:04)
[2017-12-16] MEDS: COREG PO SCH (11:04)
[2017-12-16 11:39] LABS: % Iron Saturation 5.5 %
--- NOTE | 2017-12-16 11:58 | Progress Note ---
Assessment and Plan Diuretics held in setting of renal insufficiency per nephrology. Currently stable cardiac status. The patient has been seen in conjunction with Dr. Palmer who agrees with the assessment and plan of care. - Patient Problems (1) Acute systolic heart failure Current Visit: Yes Status: Acute (2) Nonischemic cardiomyopathy Current Visit: Yes Status: Chronic (3) CKD (chronic kidney disease) Current Visit: Yes Status: Chronic Qualifiers: Chronic kidney disease stage: stage 4 (severe) Qualified Code(s): N18.4 - Chronic kidney disease, stage 4 (severe) (4) Hypertension Current Visit: Yes Status: Chronic Qualifiers: Hypertension type: essential hypertension Qualified Code(s): I10 - Essential (primary) hypertension (5) H/O acute myocardial infarction Current Visit: Yes Status: Chronic Subjective Date of service: 12/16/17 Principal diagnosis: Acute on chronic systolic heart failure, severe Pulm HTN Interval history: pt resting comfortably in bed. no current cardiac complaints. Objective Last Vital Signs Temp 98.8 F 12/16/17 07:13 Pulse 63 12/16/17 11:04 Resp 16 12/16/17 07:13 BP 150/78 12/16/17 11:04 Pulse Ox 100 12/16/17 07:13 - Physical Examination General: No Apparent Distress HEENT: Positive: EOMI, Normocephaly, Mucus Membranes Moist Neck: Positive: neck supple, trachea midline Cardiac: Positive: Reg Rate and Rhythm, S1/S2 Lungs: Positive: clear to auscultation Neuro: Positive: Grossly Intact Abdomen: Positive: Soft, Active Bowel Sounds Skin: Positive: Clear, Other (BLE dryness and healing blisters ). Negative: Rash Musculoskeletal: Normal Range of Motion Extremities: Absent: edema - Labs and Meds Cardiac Enzymes 12/16/17 Range/Units 06:17 AST 12 (5-40) units/L CBC 12/16/17 Range/Units 06:17 WBC 4.2 L (4.5-11.0) K/mm3 RBC 3.77 (3.65-5.03) M/mm3 Hgb 7.9 L (11.8-15.2) gm/dl Hct 26.0 L (35.5-45.6) % Plt Count 219 (140-440) K/mm3 Comprehensive Metabolic Panel 12/16/17 Range/Units 06:17 Sodium 136 L (137-145) mmol/L Potassium 4.1 (3.6-5.0) mmol/L Chloride 94.4 L (98-107) mmol/L Carbon Dioxide 26 (22-30) mmol/L BUN 48 H (9-20) mg/dL Creatinine 3.7 H (0.8-1.5) mg/dL Glucose 85 (75-100) mg/dL Calcium 8.2 L (8.4-10.2) mg/dL AST 12 (5-40) units/L ALT 11 (7-56) units/L Alkaline Phosphatase 113 (35-129) units/L Total Protein 6.0 L (6.3-8.2) g/dL Albumin 2.8 L (3.9-5) g/dL - Imaging and Cardiology EKG: image reviewed - Telemetry EKG Rhythm: Sinus Rhythm - EKG Sinus rhythms and dysrhythmias: sinus rhythm Repolarization changes or abnormalities: ST or T wave suggestive of ischemia Myocardial infarction: inferior [place] (old age inde
--- NOTE | 2017-12-16 16:24 | Discharge Summary ---
Providers - Providers Date of Admission: 12/13/17 11:19 Date of discharge: 12/16/17 Attending physician: MILAGRO BLAIR 12/13/17 15:44 Consult to Physician [CONS] Stat Consulting Provider: KERRIE BOND Reason For Exam: acute on chronic CHF Place consult to:: Dr. Dr. Bond Notified:: not notified yet Was contact made?: No 12/13/17 15:50 Consult to Physician [CONS] Routine Consulting Provider: MARIA ESTHER QUIJANO Reason For Exam: acute on chronic renal failure Place consult to:: Dr. Quijano Notified:: Haley URENA Phone number called:: Was contact made?: Yes If yes, spoke with:: Darya-ismael service Time called:: 18:28 12/14/17 09:29 Consult to Wound/ET Nurse [CONS] Routine Reason For Exam: BLE blisters and discolorations Primary care physician: PRIVACY DIRECTOR Hospitalization Reason for admission: systolic HF exacerbation, pulmonary hypertension, Acute on CKD stage 4. Condition: Stable Pertinent studies: CXR mild cardiomegaly and pulmonary congestion Procedures: None Hospital course: 67-year-old male patient who presented to the emergency room on account of progressive swelling in the lower extremities which had been ongoing for the past 1-2 weeks patient is currently on treatment for hypertension diabetes and also history of congestive heart failure with previous ejection fraction of below 40%. Patient is currently on diuretic which he stated that he has been compliant with, patient has also noticed some increased weight gain over the past week. Patient denied any chest pain and denied any shortness of breath and also denied any orthopnea no fever reported no cough. Patient is currently on treatment for diabetes stated that his blood sugar fluctuates and has not been under control. He takes his blood pressure medication regularly but reports that his blood pressure has also been running high. Patient has also been evaluated for chronic kidney disease and was previously evaluated by Dr. Kennedy central supply assistant. Denied any difficulty with urination no blood in the urine and denied any back pain. Echocardiogram of February 2017 showed ejection fraction of 30-35% with elevated left ventricular systolic pressure of 72. Patient on admission was commenced on diuretic, Mateo, beta carole, strict input and output, daily weights, pitting edema decreased. Cardiology and nephrology consults were obtained. The creatinine and BUN were close to monitor. Had anemia of iron deficiency anemia. Patient has been discharged to follow-up with primary care physician, central supply assistant and agricultural research engineer in 3, 7 and 10 days respectively Disposition: DC-01 TO HOME OR SELFCARE Time spent for discharge: 34 min Core Measure Documentation - Palliative Care Palliative Care/ Comfort Measures: Not Applicable - Core Measures Any of the following diagnoses?: none Exam - Physical Exam Narrative exam: Constitutional: Well-nourished well-developed. In no distress Head: Normocephalic atraumatic Eyes: Pupils are equal round and reactive to light Nose: No enlarged turbinates, no septal deviation. Mouth: Moist mucous membranes. Neck: Supple no thyromegaly. No bruit. No JVD Heart: Regular rate and rhythm, S1-S2 abnormal. No rubs murmurs or gallop Lungs: Clear to auscultation bilaterally no rales or rhonchi Abdomen: Soft, nontender. Bowel sound are present. Extremities: No edema no cyanosis and no clubbing. Neuro: Alert oriented Oriented x3. No focal sensory or motor deficit. Skin: No rashes no hyperemic spots Psychiatry: Euthymic. Calm. - Constitutional Vitals: Temp Pulse Resp BP Pulse Ox 98.1 F 61 18 139/74 100 12/16/17 12:52 12/16/17 14:17 12/16/17 12:52 12/16/17 14:17 12/16/17 12:52 Plan Activity: advance as tolerated, fall precautions Weight Bearing Status: Non-Weight Bearing Diet: low cholesterol, low salt, renal Follow up with: PRIMARY CAREMD [Primary Care Provider] - 3-5 Days MARIA ESTHER QUIJANO MD [Staff Physician] - 7 Days KERRIE BOND MD [Staff Physician] - 7 Days Prescriptions: Aspirin [Aspirin BABY CHEW TAB] 81 mg PO QDAY #30 tab.chew Carvedilol [Coreg] 6.25 mg PO BID 2 Days #60 tablet hydrALAZINE [Apresoline TAB] 50 mg PO Q8HR #90 tablet Insulin Detemir [Levemir] 12 units SUB-Q QHS #100 units Insulin Regular, Human [Humulin R U-500 Kwikpen] 6 unit SQ BIDAC #100 insuln.pen NIFEdipine XL [Procardia Xl] 30 mg PO Q12HR #60 tablet Pantoprazole [Protonix TAB] 40 mg PO BID #60 tablet Pravastatin [Pravachol] 40 mg PO QHS #30 tablet
[2017-12-16 18:19] VITALS: BP 136/74
--- NOTE | 2017-12-18 09:34 | Vascular Lab Report ---
LOWER EXTREMITY VENOUS DUPLEX: REASON FOR EXAM: Swelling of the lower extremities. COMMENTS ON THE RIGHT: All veins visualized are freely compressible without evidence of internal echogenicity. Flow is spontaneous and phasic throughout. COMMENTS ON THE LEFT: All veins visualized are freely compressible without evidence of internal echogenicity. Flow is spontaneous and phasic throughout. IMPRESSION: No evidence of acute or chronic deep venous thrombosis in either lower extremity.
== END 2017-12-16 19:30 | disposition home health service (06) | DRG 682 ==
LOC: ED 03:09 → 4A 11:19
PROVIDERS: ADMIT Internal Medicine; ATTEND Internal Medicine
PROC: 3E0234Z Introduction of Serum, Toxoid and Vaccine into Muscle, Percutaneous Approach (ICD-10-PCS; principal; 2017-12-14)
DX: N17.9 Acute kidney failure, unspecified (principal); J96.01 Acute respiratory failure with hypoxia; I50.23 Acute on chronic systolic (congestive) heart failure; I13.0 Hypertensive heart and chronic kidney disease with heart failure and stage 1 through stage 4 chronic kidney disease, or unspecified chronic kidney disease; I42.9 Cardiomyopathy, unspecified; N18.4 Chronic kidney disease, stage 4 (severe); E11.22 Type 2 diabetes mellitus with diabetic chronic kidney disease; I16.0 Hypertensive urgency; D64.9 Anemia, unspecified; I27.20 Pulmonary hypertension, unspecified; D50.9 Iron deficiency anemia, unspecified; Z23 Encounter for immunization; Z79.82 Long term (current) use of aspirin; Z79.4 Long term (current) use of insulin; Z79.899 Other long term (current) drug therapy; Z82.49 Family history of ischemic heart disease and other diseases of the circulatory system; Z83.3 Family history of diabetes mellitus; I25.2 Old myocardial infarction
CPT/HCPCS: 36415; 71045; 80048; 80053; 81001; 82140; 82565; 82570; 82607; 82728; 82747; 82962; 83550; 83735; 83880; 84100; 84156; 84295; 84300; 85007; 85025; 85027; 85045; 85610; 87040; 90686; 90732; 93005; 93010; 93970; 96374; A9270-GY; J0360; J0885; J1644; J1815; J1818; J1940; J3370

== ENCOUNTER 2018-01-14 14:44 | Emergency (ER) | payer MEDICARE ==
[2018-01-14 14:56] VITALS: BP 162/108
== END 2018-01-14 19:31 | disposition left against medical advice (07) ==
LOC: ED 14:44
DX: M79.604 Pain in right leg (principal); M79.605 Pain in left leg; Z53.21 Procedure and treatment not carried out due to patient leaving prior to being seen by health care provider